=== PATIENT | female | born 1965 | race Caucasian/White ===

== ENCOUNTER 2019-10-10 11:45 | Outpatient (CLI) | payer SELFPAY ==
--- NOTE | 2019-10-10 11:56 | XR_ITS ---
WS: [id number] FOOT LEFT TECHNIQUE: 3 views of the left foot CLINICAL INFORMATION: LEFT FOOT PAIN COMPARISON: None. FINDINGS: Osteopenia. No acute fractures. Mild degenerative arthritis. Prominent Achilles and plantar calcaneal spurring. Mild diffuse soft tissue edema. XR/XR foot LT min 3V* [id number] IMPRESSION: 1. Osteopenia. 2. Diffuse soft tissue edema. No acute fractures. 3. Mild degenerative arthritis. 4. Prominent plantar and Achilles calcaneal spurring.
== END 2019-10-10 11:46 | disposition home or self-care (01) ==
LOC: RADWPI 11:51
PROVIDERS: PCP Nurse Practitioner Family; Visit Provider Nurse Practitioner Family
DX: M85.872 Other specified disorders of bone density and structure, left ankle and foot (principal); R60.9 Edema, unspecified; M19.072 Primary osteoarthritis, left ankle and foot; M77.32 Calcaneal spur, left foot
CPT/HCPCS: 73630

== ENCOUNTER 2019-11-14 18:39 | Emergency (ER) | payer SELFPAY ==
[2019-11-14 19:06] VITALS: BP 228/125; PULSE 80; RESP 18; TEMP 36.9; O2SAT 97; BMI 43.8
--- NOTE | 2019-11-14 19:10 | XRR_ITS ---
PROCEDURE INFORMATION: Exam: XR Chest, 1 View Exam date and time: 11/14/2019 7:23 PM Age: 54 years old Clinical indication: Other: High BP; Additional info: Cp TECHNIQUE: Imaging protocol: XR of the chest Views: 1 view. COMPARISON: No relevant prior studies available. FINDINGS: Lungs: Unremarkable. No consolidation. Pleural space: Unremarkable. No pleural effusion. No pneumothorax. Heart/Mediastinum: Hiatal hernia. Bones/joints: Unremarkable. XR/XR chest 1V portable [id number] IMPRESSION: Nonacute.
--- NOTE | 2019-11-14 19:11 | ECG_ITS ---
Measurements Intervals [place] Rate: 76 P: 20 CO: 146 QRS: 3 QRSD: 78 T: 9 QT: 362 QTc: 407 SINUS RHYTHM MODERATE VOLTAGE CRITERIA FOR LVH, CONSIDER NORMAL VARIANT [MEETS CRITERIA IN ON ONE OF: R(aVL), S(V1), R(V5), R(V5/V6)+S(V1)] No previous ECG available for comparison Electronically Signed On 11-15-2019 8:03:31 CDT by Merrill Contreras [email or web address]
--- NOTE | 2019-11-14 19:15 | ED_ITS ---
Entered by Marla Ramirez, acting as scribe for Sofy Zhang HPI - General Adult General: Chief complaint: General Medical Stated complaint: high bp Time Seen by Provider: 11/14/19 19:10 Source: patient Mode of arrival: ambulatory Limitations: no limitations History of Present Illness: HPI narrative: 54 yo f came to the er pov for hypertension. Onset was today. Pt states that she has had issues with her bp for a few years and stopped taking her medication. She called [facility] to see if that could put her back on the medication and they told pt that her bp was stroke level and to come here. PTs bp at home was 193/103. Pt is denying chest pain, headache and shortness of breath at this time. Pt has been on antibiotics for a URI. complaint: HTN Onset (ago): day(s) (today) Severity: moderate Pain Consistency: intermittent Relieving factors: none Exacerbating factors: none Associated symptoms: Reports no associated symptoms; Deny chest pain, dyspnea, headache(s), nausea or rash Treatments prior to arrival: none Review of Systems General: Reports: other (negative unless marked) Const: Denies: fever Eyes: Denies: change in vision ENMT: Denies: throat pain Card: Denies: chest pain Resp: Denies: shortness of breath or productive cough GI: Denies: abdominal pain or nausea : Denies: flank pain Musc: Denies: neck pain or back pain Skin/Breast: Denies: rash Neuro: Denies: headache Psych: Denies: anxiety Endo: Denies: excessive urination or excessive thirst [place]ako/Lymph: Denies: easy bruising PFS ED PFSH: Social History Smoking and tobacco status: former smoker Physical Exam Const: COMMON NORMALS: no apparent distress, oriented x3, no limitations, healthy appearing and well nourished EXAM LIMITATIONS: no altered mental status GENERAL APPEARANCE: cooperative, well kempt and well developed ORIENTATION/CONSCIOUSNESS: Yes awake HENMT: COMMON NORMALS: normocephalic, head/scalp atraumatic, hearing grossly normal bilaterally, external ears normal, EAC's normal, external nose normal and moist oral mucous membranes HEAD & SCALP: normal to inspection, normocephalic and atraumatic FACE & SINUS: normal facial exam and face symmetric NOSE: external nose normal and nares normal EXTERNAL EAR: Yes external ears normal EXTERNAL AUDITORY CANAL: EAC's normal MOUTH: oral and palatal mucosa normal and tongue normal Eye: COMMON NORMALS: PERRL, EOMs intact bilaterally, conjunctivae normal and no scleral icterus GENERAL EYE: normal appearance of both eyes and normal light reflex CONJUNCTIVA: Yes conjunctivae normal SCLERA: sclerae normal CORNEA: Yes corneas normal PUPIL: Yes PERRL DIRECT OPHTHALMOSCOPY: Yes normal light reflex Neck/C-Spine: COMMON NORMALS: full ROM, no lymphadenopathy, supple, no meningeal signs and no JVD GENERAL: Yes normal visual inspection and Yes trachea midline CERVICAL SPINE: Yes cervical ROM normal Chest: COMMONS NORMALS: inspection of chest normal and palpation of chest normal Resp: COMMON NORMALS: normal respiratory effort, no retractions, no use of accessory muscles and clear to auscultation bilaterally EFFORT & INSPECTION: Yes able to speak in complete sentences AUSCULTATION: clear to auscultation bilaterally Cardio: COMMON NORMALS: no JVD, regular rate, regular rhythm, S1 normal heart sound, S2 normal heart sound, no gallops, no clicks, no murmurs and no rub JUGULAR VENOUS DISTENTION: no JVD RATE: regular rate RHYTHM: regular rhythm HEART SOUNDS: S1 normal and S2 normal GI: COMMON NORMALS: soft to palpation, non-tender, no hepatosplenomegaly and no masses INSPECTION: Yes normal to inspection PALPATION: Yes soft and Yes no hepatosplenomegaly : COMMON NORMALS: Yes no CVA tenderness BLADDER/KIDNEY EXAM: Yes no CVA tenderness Back/Pelvis: COMMON NORMALS: no CVA tenderness, thoracic and lumbar spine normal to inspection, no thoracic nor lumbar tenderness and thoraco-lumbar ROM normal Extremity: COMMON NORMALS: normal to inspection, full ROM, normal capillary refill, no joint enlargement, no clubbing, cyanosis or edema and no calf tenderness Neuro: COMMON NORMALS: oriented x3, CN's II-XII intact bilaterally, moves all extremities, no focal motor deficits and no sensory deficits noted MENINGEAL SIGNS: Yes no meningeal signs Psych: COMMON NORMALS: mental status grossly normal, thought process normal, cooperative, affect normal, speech normal and activity/motor behavior normal APPEARANCE: Yes well kempt SPEECH: Yes normal speech THOUGHT PROCESS: normal thought process Skin: COMMON NORMALS: no rashes or lesions noted, skin turgor normal, no jaundice, no petechiae and no mottling GENERAL SKIN EXAM: no rashes or lesions noted and turgor normal Course Vital Signs: Vital signs: Vital Signs Temperature 98.4 F 11/14/19 19:06 Pulse Rate 80 11/14/19 19:06 Respiratory Rate 18 11/14/19 19:06 Blood Pressure 228/125 11/14/19 19:06 Pulse Oximetry 97 11/14/19 19:06 MDM - General Adult MDM Narrative: Medical decision making narrative: The case was reviewed in full with Dr. Sandoval, on-call for Mr. Kim. She agrees to have the patient start Norvasc 5 mg daily. The patient is asymptomatic and simply has uncontrolled hypertension. They will try to fit the patient in next week if possible. At this time though the patient is ready for discharge. Lab Data: Attestation: I reviewed the patient's lab results. Labs: Lab Results 11/14/19 11/14/19 11/14/19 Range/Units 19:23 19:23 19:23 WBC 8.6 (4.0-10.0) 10^3/ uL RBC 5.13 (4.1-5.3) 10^6/u L Hgb 12.0 (11.5-15.3) g/dL Hct 41.0 (37.0-47.0) % MCV 79.9 L (81-99) fL MCH 23.4 L (28.0-34.0) pg MCHC 29.3 L (30.0-36.0) g/dL RDW 17.1 H (12.1-15.1) % Plt Count 391 (130-400) 10^3/c mm MPV 11.9 H (7.4-10.4) fL Neut % (Auto) 60.6 % Lymph % (Auto) 31.9 % [place] % (Auto) 5.1 % Eos % (Auto) 1.4 % Baso % (Auto) 0.5 % Neut # (Auto) 5.2 (1.8-7.7) 10^3/u L Lymph # (Auto) 2.7 (0.8-4.8) 10^3/u L [place] # (Auto) 0.4 (0.2-0.9) 10^3/u L Eos # (Auto) 0.1 (0.0-0.8) 10^3/u L Baso # (Auto) 0.0 (0.0-0.1) 10^3/u L Nucleated RBC % (a uto) 0 % Nucleated RBCs # 0.0 /100WBC Sodium 138 (136-145) mmol/L Potassium 4.2 (3.5-5.1) mmol/L Chloride 101 (98-107) mmol/L Carbon Dioxide 20 L (22-29) mmol/L Anion Gap 21.2 H (5-19) BUN 8 (6-20) mg/dL Creatinine 1.1 H (0.5-0.9) mg/dL GFR Calculation 52.2 L (90-130) mL/min Glucose 113 (65-115) mg/dL Calculated Osmolal ity 283 L (285-295) mOsm/k g Calcium 8.5 (8.5-10.5) mg/dL Magnesium 2.1 (1.7-2.3) mg/dL Total Bilirubin 0.2 (0.15-1.2) mg/dL AST 20 (0-32) U/L ALT 23 (0-33) U/L Alkaline Phosphata se 109 H (35-105) IU/L Troponin T Baselin e 6 (0-10) ng/mL Total Protein 7.3 (6.6-8.7) g/dL Albumin 4.3 (3.5-5.2) g/dL Globulin 3.0 (1.3-4.6) g/dL Urine Color (Yellow) Urine Appearance (CLEAR) Urine pH (5-7) Ur Specific Gravit y (1.005-1.030) Urine Protein (Negative) Urine Glucose (UA) (Normal) Urine Ketones (Negative) Urine Blood (Negative) Urine Nitrate (Negative) Urine Bilirubin (NEGATIVE) Urine Urobilinogen (Negative) mg/dL Ur Leukocyte Radha ase (Negative) Urine RBC (0-2) /hpf Urine WBC (0-5) /hpf Ur Squamous Epith Cells (0-5) Urine Bacteria (NONE) Urine Opiates Scre en (Negative) ng/mL Ur Barbiturates Sc reen (Negative) ng/mL Ur Phencyclidine S crn (Negative) ng/mL Ur Amphetamines Sc reen (Negative) ng/mL U Benzodiazepines Scrn (Negative) ng/mL Urine Cocaine Scre en (Negative) ng/mL U Marijuana (THC) Screen (Negative) ng/mL 11/14/19 11/14/19 Range/Units 19:40 19:40 WBC (4.0-10.0) 10^3/ uL RBC (4.1-5.3) 10^6/u L Hgb (11.5-15.3) g/dL Hct (37.0-47.0) % MCV (81-99) fL MCH (28.0-34.0) pg MCHC (30.0-36.0) g/dL RDW (12.1-15.1) % Plt Count (130-400) 10^3/c mm MPV (7.4-10.4) fL Neut % (Auto) % Lymph % (Auto) % [place] % (Auto) % Eos % (Auto) % Baso % (Auto) % Neut # (Auto) (1.8-7.7) 10^3/u L Lymph # (Auto) (0.8-4.8) 10^3/u L [place] # (Auto) (0.2-0.9) 10^3/u L Eos # (Auto) (0.0-0.8) 10^3/u L Baso # (Auto) (0.0-0.1) 10^3/u L Nucleated RBC % (a uto) % Nucleated RBCs # /100WBC Sodium (136-145) mmol/L Potassium (3.5-5.1) mmol/L Chloride (98-107) mmol/L Carbon Dioxide (22-29) mmol/L Anion Gap (5-19) BUN (6-20) mg/dL Creatinine (0.5-0.9) mg/dL GFR Calculation (90-130) mL/min Glucose (65-115) mg/dL Calculated Osmolal ity (285-295) mOsm/k g Calcium (8.5-10.5) mg/dL Magnesium (1.7-2.3) mg/dL Total Bilirubin (0.15-1.2) mg/dL AST (0-32) U/L ALT (0-33) U/L Alkaline Phosphata se (35-105) IU/L Troponin T Baselin e (0-10) ng/mL Total Protein (6.6-8.7) g/dL Albumin (3.5-5.2) g/dL Globulin (1.3-4.6) g/dL Urine Color Yellow (Yellow) Urine Appearance Cloudy (CLEAR) Urine pH 6.5 (5-7) Ur Specific Gravit y 1.010 (1.005-1.030) Urine Protein Neg (Negative) Urine Glucose (UA) Norm (Normal) Urine Ketones Negative (Negative) Urine Blood Neg (Negative) Urine Nitrate Negative (Negative) Urine Bilirubin Neg (NEGATIVE) Urine Urobilinogen 1 H (Negative) mg/dL Ur Leukocyte Radha ase Negative (Negative) Urine RBC None (0-2) /hpf Urine WBC 0-4 H (0-5) /hpf Ur Squamous Epith Cells 15-25 H (0-5) Urine Bacteria 1+ H (NONE) Urine Opiates Scre en Negative (Negative) ng/mL Ur Barbiturates Sc reen Negative (Negative) ng/mL Ur Phencyclidine S crn Negative (Negative) ng/mL Ur Amphetamines Sc reen Negative (Negative) ng/mL U Benzodiazepines Scrn Negative (Negative) ng/mL Urine Cocaine Scre en Negative (Negative) ng/mL U Marijuana (THC) Screen Negative (Negative) ng/mL EKG Data^: EKG 1: Attestation: I personally reviewed and interpreted this EKG as follows: EKG interpretation date: 11/14/19 EKG interpretation time: 19:26 Interpretation: Normal sinus rhythm at 76 beats a minute, LVH, normal intervals, no blocks. No acute ST-T wave changes. Computer generated interpretation: Chest X-Ray 11/14/19 19:10 IMPRESSION: Nonacute. Discharge Plan Discharge Patient Disposition: Home, Self-Care Clinical Impression: Hypertension Qualifiers: Hypertension type: essential hypertension Qualified Code(s): I10 - Essential (primary) hypertension Condition: Stable Prescriptions: New Norvasc 5 mg tablet 5 mg PO DAILY Qty: 30 RF: 0 No Action Dexilant 30 mg Capsule,Biphase Delayed Releas 60 mg PO DAILY PRN (Reason: unknown) RF: 0 azithromycin 250 mg tablet See Rx Instructions .ROUTE .COMPLEX RF: 0 Discharge Orders: Discharge Order (Routine); Ordered 11/14/19 Ordered By: Sofy Zhang Referrals: Matthew Kim NP [Primary Care Provider] - 1-3 days [facility], [Family Provider] - Discharge Diet: Advance as tolerated Discharge Activity: Increase activity as tolerated Patient Instructions: Hypertension (ED) Activity Restrictions/Additional Instructions: Please return to the ER immediately for any of the signs or symptoms listed on your discharge instruction sheets, worsening/changing of your symptoms, you are not getting better as quickly as expected, or for ANY other cause or concerns. Coding Level of Care Code ED Energy Sales Consultant for Chg Fwd Exam Comprehensive The documentation recorded by the James montoya Stephanie Lyn, accurately reflects the service I personally performed and the decisions made by me, Sofy Zhang Nov 14, 2019 18:39
[2019-11-14] MEDS: labetalol 5 mg/mL SDV 20mL 10 MG IVP (19:37)
[2019-11-14 19:46] LABS: Basophils % 0.5 %; Eosinophils # 0.1 10^3/uL (0.0-0.8); Eosinophils % 1.4 %; Lymphocytes # 2.7 10^3/uL (0.8-4.8); Lymphocytes % 31.9 %; Mean Corpuscular HGB Conc 29.3 g/dL (30.0-36.0); Mean Corpuscular Hemoglobin 23.4 pg (28.0-34.0); Mean Corpuscular Volume 79.9 fL (81-99); Mean Platelet Volume 11.9 fL (7.4-10.4); Monocytes # 0.4 10^3/uL (0.2-0.9); Monocytes % 5.1 %; Neutrophils # 5.2 10^3/uL (1.8-7.7); Neutrophils % 60.6 %; Nucleated Red Blood Cells % 0 %; Platelet Count 391 10^3/cmm (130-400); Red Blood Count 5.13 10^6/uL (4.1-5.3); Red Cell Distribution Width 17.1 % (12.1-15.1); White Blood Count 8.6 10^3/uL (4.0-10.0)
[2019-11-14 19:55] LABS: Add Urine Microscopic? YES; Bilirubin Urine Neg (NEGATIVE); Blood Urine Neg (Negative); Glucose Urine UA Norm (Normal); Ketones Urine Negative (Negative); Leukocyte Esterase Urine Negative (Negative); Nitrate Urine Negative (Negative); Protein Urine Neg (Negative); Urine Appearance Cloudy (CLEAR); Urine Color Yellow (Yellow); Urobilinogen Urine 1 mg/dL (Negative); pH Urine 6.5 (5-7)
[2019-11-14 19:56] LABS: Alanine Aminotransferase 23 U/L (0-33); Albumin Level 4.3 g/dL (3.5-5.2); Alkaline Phosphatase 109 IU/L (35-105); Anion Gap 21.2 (5-19); Aspartate Amino Transferase 20 U/L (0-32); Blood Urea Nitrogen 8 mg/dL (6-20); Calcium 8.5 mg/dL (8.5-10.5); Carbon Dioxide 20 mmol/L (22-29); Chloride 101 mmol/L (98-107); Glomerular Filtration Rate 52.2 mL/min (90-130); Glucose 113 mg/dL (65-115); Magnesium 2.1 mg/dL (1.7-2.3); Osmolality Calculated 283 mOsm/kg (285-295); Potassium 4.2 mmol/L (3.5-5.1); Sodium 138 mmol/L (136-145); Total Bilirubin 0.2 mg/dL (0.15-1.2); Total Protein 7.3 g/dL (6.6-8.7)
[2019-11-14 19:58] LABS: Troponin(5th) Baseline 6 ng/mL (0-10)
[2019-11-14 20:00] LABS: Bacteria Urine 1+; Squamous Epithelial Cell Urine 15-25 (0-5); WBC Urine 0-4 /hpf (0-5)
[2019-11-14 20:02] LABS: Amphetamines Screen Urine Negative (Negative); Barbiturates Screen Urine Negative (Negative); Benzodiazepines Screen Urine Negative (Negative); Cocaine Screen Urine Negative (Negative); Opiate Screen Urine Negative (Negative); PCP Screen Urine Negative (Negative); THC Screen Urine Negative (Negative)
--- NOTE | 2019-11-14 21:11 | ECG_ITS ---
Measurements Intervals [place] Rate: 76 P: 20 [place]: 146 QRS: 3 QRSD: 78 T: 9 QT: 362 QTc: 407 SINUS RHYTHM MODERATE VOLTAGE CRITERIA FOR LVH, CONSIDER NORMAL VARIANT [MEETS CRITERIA IN ON ONE OF: R(aVL), S(V1), R(V5), R(V5/V6)+S(V1)] No previous ECG available for comparison Electronically Signed On 11-15-2019 8:10:44 CDT by Merrill Contreras [email or web address]
[2019-11-14] MEDS: amlodipine 5 mg Tablet PO (21:30)
[2019-11-14 21:35] VITALS: BP 160/99; RESP 16
== END 2019-11-14 21:36 | disposition home or self-care (01) ==
PROVIDERS: Emergency Provider Emergency Medicine; PCP Nurse Practitioner Family
DX: I10 Essential (primary) hypertension (principal); Z87.891 Personal history of nicotine dependence
CPT/HCPCS: 12345; 36415; 71045; 80053; 80306; 81001; 83735; 84484; 85025; 93005; 93010; 96374; 99283; 99284; A9270; J3490

== ENCOUNTER 2020-11-24 07:44 | Outpatient (CLI) | payer BC, SELFPAY ==
--- NOTE | 2020-11-24 07:50 | MM_ITS ---
WS: [id number] BILATERAL DIGITAL SCREENING MAMMOGRAPHY WITH CAD CLINICAL INFORMATION: SCREENING HISTORY: Screening mammogram. No current complaints. COMPARISON: None. TECHNIQUE: Bilateral CC and MLO views. FINDINGS: Scattered fibroglandular densities bilaterally. No suspicious focal mass, asymmetry, calcifications, or architectural distortion. No evidence of malignancy. Punctate and lucent centered calcifications. MM/[id number] IMPRESSION: BI-RADS: 2-Benign FOLLOW UP: 1 Year Follow-up Recommend return to annual screening mammography.
== END 2020-11-24 07:45 | disposition home or self-care (01) ==
LOC: RADSHAW 07:47
PROVIDERS: PCP Registered Nurse; Visit Provider Registered Nurse
DX: Z12.31 Encounter for screening mammogram for malignant neoplasm of breast (principal)
CPT/HCPCS: 77067

== ENCOUNTER 2020-12-17 21:08 | Observation (INO) | payer BC, SELFPAY ==
[2020-12-17 21:16] VITALS: BP 158/92; PULSE 109; RESP 18; TEMP 36.9; O2SAT 98; BMI 49.6
[2020-12-17 21:34] LABS: Basophils % 0.4 %; Eosinophils % 0.1 %; Hematocrit 22.5 % (37.0-47.0); Lymphocytes # 1.1 10^3/uL (0.8-4.8); Lymphocytes % 15.6 %; Mean Corpuscular HGB Conc 25.8 g/dL (30.0-36.0); Mean Corpuscular Hemoglobin 18.8 pg (28.0-34.0); Mean Corpuscular Volume 72.8 fL (81-99); Mean Platelet Volume 11.3 fL (7.4-10.4); Monocytes # 0.2 10^3/uL (0.2-0.9); Monocytes % 2.7 %; Neutrophils # 5.43 10^3/uL (1.8-7.7); Nucleated Red Blood Cells % 0.6 %; Platelet Count 479 10^3/cmm (130-400); Red Blood Count 3.09 10^6/uL (4.1-5.3); Red Cell Distribution Width 20.1 % (12.1-15.1); White Blood Count 6.8 10^3/uL (4.0-10.0)
[2020-12-17 21:39] LABS: Hemoglobin 5.8 g/dL (11.5-15.3)
[2020-12-17 21:48] LABS: INR 1.09 (0.8-1.2)
[2020-12-17 21:50] VITALS: BP 197/105; PULSE 111; RESP 16; TEMP 37.1; O2SAT 99
[2020-12-17 21:58] LABS: Alanine Aminotransferase 18 U/L (0-33); Albumin Level 4.3 g/dL (3.5-5.2); Alkaline Phosphatase 94 IU/L (35-105); Anion Gap 17.5 (5-19); Aspartate Amino Transferase 23 U/L (0-32); Blood Urea Nitrogen 12 mg/dL (6-20); Calcium 8.6 mg/dL (8.5-10.5); Carbon Dioxide 22 mmol/L (22-29); Chloride 98 mmol/L (98-107); Globulin 2.6 g/dL (1.3-4.6); Glucose 258 mg/dL (65-115); Osmolality Calculated 285 mOsm/kg (285-295); Potassium 4.5 mmol/L (3.5-5.1); Sodium 133 mmol/L (136-145); Total Bilirubin 0.5 mg/dL (0.15-1.2); Total Protein 6.9 g/dL (6.6-8.7)
[2020-12-17] MEDS: acetaminophen 500 mg Tablet 1000 MG PO (23:41)
[2020-12-17] MEDS: diphenhydrAMINE 50 mg/mL SDV 1mL 25 MG IVP (23:42)
[2020-12-17 23:46] VITALS: BP 200/85; PULSE 96; RESP 15; TEMP 36.8; O2SAT 98
[2020-12-17] MEDS: sodium chloride 0.9% 500 ML 50 ML IV (23:53)
--- NOTE | 2020-12-17 23:54 | P.HP_ITS ---
Providers/Chief Complaint Primary Care Provider: PANCHO Nunez Chief Complaint: SENT BY PCP/CHRIS:HEMAGLOBIN 5.9 History of Present Illness Suzie Gomez is a 55 year old female with past medical history of hypertension who presents with complaints of new onset shortness of breath which started several weeks ago. She was seen by her primary care physician for this and was later told to come to emergency room because her PCP found that she was anemic. Here her hemoglobin is 5.8. The patient denies associated chest pain, diaphoresis, dizziness or lightheadedness. She reports tiredness. She has history of hysterectomy and denies menses. Denies vaginal bleeding. Reports constipation and intermittently black stools for last several weeks. She had a colonoscopy several years ago which was unremarkable. Denies any significant abdominal pain. No nausea or vomiting. No weight loss. Denies anemia in the past. Review of Systems General: Reports: 10 or more systems reviewed and unremarkable except in HPI and below Medications/Allergies Home Medications Medication Instructions Recorded Confirmed Last Taken Type amlodipine [Norvasc] 5 mg PO DAILY #30 tab 11/14/19 Unknown Rx azithromycin See Rx Instructions .ROUTE .COMPLEX 11/14/19 11/14/19 11/14/19 08:30 History 1 tab dexlansoprazole [Dexilant] 60 mg PO DAILY PRN 11/14/19 11/14/19 Unknown History Allergies Allergy/AdvReac Type Severity Reaction Status Date / Time No Known Allergies Allergy Verified 11/14/19 19:05 PFSH Acute PFSH: Social History Smoking and tobacco status: former smoker Vitals/I&O/Wt Last Vital Signs Temp 98.3 F 12/17/20 23:46 Pulse 96 12/17/20 23:46 Resp 15 12/17/20 23:46 BP 200/85 12/17/20 23:46 Pulse Ox 98 12/17/20 23:46 12/17/20 12/17/20 12/18/20 14:59 22:59 06:59 Intake Total 0 / 0 Balance 0 / 0 Weight last 48 hrs Weight 143.789 kg Physical Exam Narrative: EXAM NARRATIVE: The patient is awake alert and oriented. No acute distress. Mood and affect are appropriate. Responses are adequate. Skin is warm and dry. Moist mucous membranes Normal speech. Eyes PERRL, extraocular muscles are intact Neck supple. No JVD Lungs clear to auscultation bilaterally. No wheezes or crackles Heart S1, S2, regular Abdomen is soft, nontender, bowel sounds are present Extremities no edema cyanosis or calf tenderness bilaterally Neuro exam is nonfocal. Data : 12/17/20 21:30 12/17/20 21: Other Labs: Laboratory Results WBC 6.8 10^3/uL (4.0-10.0) 12/17/20 21: RBC 3.09 10^6/uL (4.1-5.3) L 12/17/20 21: Hgb 5.8 g/dL (11.5-15.3) L* 12/17/20: Hct 22.5 % (37.0-47.0) L 12/17/20: MCV 72.8 fL (81-99) L 12/17/20: MCH 18.8 pg (28.0-34.0) L 12/17/20: MCHC 25.8 g/dL (30.0-36.0) L 12/17/20 21: RDW 20.1 % (12.1-15.1) H 12/17/20 21: Plt Count 479 10^3/cmm (130-400) H 12/17/20: MPV 11.3 fL (7.4-10.4) H 12/17/20 21: Neut % (Auto) 80.0 % 12/17/20: Lymph % (Auto) 15.6 % 12/17/20: [place] % (Auto) 2.7 % 12/17/20 21: Eos % (Auto) 0.1 % 12/17/20: Baso % (Auto) 0.4 % 12/17/20:30 Neut # (Auto) 5.43 10^3/uL (1.8-7.7) 12/17/20: Lymph # (Auto) 1.1 10^3/uL (0.8-4.8) 12/17/20 21:30 [place] # (Auto) 0.2 10^3/uL (0.2-0.9) 12/17/20 21: Eos # (Auto) 0.0 10^3/uL (0.0-0.8) 12/17/20 21:30 Baso # (Auto) 0.0 10^3/uL (0.0-0.1) 12/17/20 21:30 Nucleated RBC % (auto) 0.6 % 12/17/20 21:30 Nucleated RBCs # 0.0 /100WBC 12/17/20 21:30 PT 14.40 SECONDS (12.1-14.9) 12/17/20 21:30 INR 1.09 (0.8-1.2) 12/17/20 21:30 Sodium 133 mmol/L (136-145) L 12/17/20 21:30 Potassium 4.5 mmol/L (3.5-5.1) 12/17/20 21:30 Chloride 98 mmol/L (98-107) 12/17/20 21: Carbon Dioxide 22 mmol/L (22-29) 12/17/20 21:30 Anion Gap 17.5 (5-19) 12/17/20 21:30 BUN 12 mg/dL (6-20) 12/17/20 21:30 Creatinine 1.1 mg/dL (0.5-0.9) H 12/17/20 21:30 GFR Calculation 52.0 mL/min (90-130) L 12/17/20: Glucose 258 mg/dL (65-115) H 12/17/20 21:30 Calculated Osmolality 285 mOsm/kg (285-295) 12/17/20: Calcium 8.6 mg/dL (8.5-10.5) 12/17/20 21:30 Total Bilirubin 0.5 mg/dL (0.15-1.2) 12/17/20 21:30 AST 23 U/L (0-32) 12/17/20 21:30 ALT 18 U/L (0-33) 12/17/20 21:30 Alkaline Phosphatase 94 IU/L (35-105) 12/17/20 21:30 Total Protein 6.9 g/dL (6.6-8.7) 12/17/20 21:30 Albumin 4.3 g/dL (3.5-5.2) 12/17/20: Globulin 2.6 g/dL (1.3-4.6) 12/17/20 21:30 Blood Type A Positive 12/17/20 21:52 Rho(D) Type Positive / 4+ 12/17/20 21:52 Antibody Screen Negative 12/17/20 21:52 Crossmatch See Detail 12/17/20 21:52 A&P Additional A&P Information 55-year-old female with past medical history of hypertension presents with shortness of breath. Shortness of breath. Most likely due to anemia. Severe symptomatic anemia. GI bleeding is suspected. Probably upper GI. 2 units of PRBCs are ordered in the emergency room. We will admit the patient for observation. Will start Protonix twice daily IV. Will order anemia work-up. If GI bleeding is confirmed we will ask for surgical evaluation. Hypertension. Will resume home medication and cover with as needed hydralazine. Possible chronic kidney disease. Will monitor renal function and avoid nephrotoxic medications. Hyperglycemia. No history of diabetes. We will check her A1c. Will cover with insulin sliding scale. DVT prophylaxis. Teds and SCDs. No anticoagulation due to suspected bleeding and severe anemia. CODE STATUS. The patient wants to be limited code. Does not want to be intubated or connected to respirator. Cardiac resuscitation is okay. The plan of care was discussed with the patient. She verbalized understanding and agreement. Attestations Medical Necessity Statement*: Observation Coding Level of Care Code Acute M1 Armor Crewman for Josh Florez
[2020-12-18] VITALS (20 sets, daily range): BP systolic 154–184; BP diastolic 71–95; PULSE 60–93; RESP 15–18; TEMP 36.7–37.3; O2SAT 96–100
[2020-12-18 03:00] LABS: Ferritin 8 ng/mL (15-150); Iron 11 ug/dL (37-145); Total Iron Binding Capacity 218 mcg/dl; Unsaturated Iron Binding 207 ug/dL (112-347)
[2020-12-18] MEDS: sodium chloride 0.9% 500 ML 50 ML IV (03:03)
[2020-12-18 03:14] LABS: Folate Level 8.6 ng/mL (4.8-37.3)
[2020-12-18 03:15] LABS: Vitamin B12 277 pg/mL (232-1245)
[2020-12-18 03:22] LABS: Estmated Average Glucose 128; Hemoglobin A1C 6.1 % (4.0-6.0)
--- NOTE | 2020-12-18 05:16 | W.ED.RECABL ---
HPI - Recheck/Abnormal Lab/Rx General: Chief Complaint: Recheck/Abnormal Lab/Rx Stated Complaint: SENT BY PCP/CHRIS:KACEYOBILorraine 5.9 Time Seen by Provider: 12/17/20 21:55 History of Present Illness: HPI narrative: 55-year-old female who went to her PCP today, complaining of shortness of breath. She cannot walk any distance at all without becoming acutely short of breath. Originally she thought the this was simply due to deconditioning, but she has been in therapy the last couple of weeks without any improvement. She was called by her doctor's office this evening and told that her hemoglobin was quite low when to come to the ER. complaint: abnormal lab Initial visit (ago): hour(s) Initial visit for: other Returns today for: other Context: called for abnormal lab result Associated symptoms: shortness of breath Treatments prior to arrival: other Review of Systems Const: Denies: fever(s) or chills Card: Reports: palpitations; Denies: chest pain Resp: Reports: dyspnea GI: Reports: abdominal pain (Chronic); Denies: nausea, vomiting or diarrhea PFSH ED PFSH: Social History Smoking and tobacco status: former smoker Physical Exam Const: COMMON NORMALS: alert and well nourished GENERAL APPEARANCE: ill appearing ORIENTATION/CONSCIOUSNESS: Yes awake, Yes oriented to person, Yes oriented to place and Yes oriented to time Eye: COMMON NORMALS: Equal, round and reactive pupils present and EOMs intact bilaterally PUPIL: Yes Equal, round and reactive pupils present Resp: COMMON NORMALS: normal respiratory effort, No use of accessory muscles and clear to auscultation bilaterally AUSCULTATION: clear to auscultation bilaterally Cardio: COMMON NORMALS: regular rate and regular rhythm RATE: regular rate RHYTHM: regular rhythm Neuro: SENSORIUM/ORIENTATION: Yes alert, Yes oriented to person, Yes oriented to place and Yes oriented to time Course Vital Signs: Vital signs: Vital Signs Temperature 98.1 F 12/18/20 03:53 Pulse Rate 72 12/18/20 03:53 Respiratory Rate 16 12/18/20 03:53 Blood Pressure 154/71 12/18/20 03:53 Pulse Oximetry 98 12/18/20 03:53 MDM - Recheck/Abnormal Lab/Rx MDM Narrative: Medical decision making narrative: 55-year-old female called by her PCP office with a hemoglobin of 6. It is 5.8 here on confirmation. She is crossmatched for 2 units of PRBCs, and we will transfuse. To do this, she will be placed as an outpatient in a bed in the hospital for transfusion iron studies to follow, as she is microcytic. Lab Data: Labs: Lab Results 12/17/20 12/17/20 12/17/20 Range/Units 21:30 21:30 21:30 WBC 6.8 (4.0-10.0) 10^3/ uL RBC 3.09 L (4.1-5.3) 10^6/u L Hgb 5.8 L* (11.5-15.3) g/dL Hct 22.5 L (37.0-47.0) % MCV 72.8 L (81-99) fL MCH 18.8 L (28.0-34.0) pg MCHC 25.8 L (30.0-36.0) g/dL RDW 20.1 H (12.1-15.1) % Plt Count 479 H (130-400) 10^3/c mm MPV 11.3 H (7.4-10.4) fL Neut % (Auto) 80.0 % Lymph % (Auto) 15.6 % Gilchrist % (Auto) 2.7 % Eos % (Auto) 0.1 % Baso % (Auto) 0.4 % Neut # (Auto) 5.43 (1.8-7.7) 10^3/u L Lymph # (Auto) 1.1 (0.8-4.8) 10^3/u L Gilchrist # (Auto) 0.2 (0.2-0.9) 10^3/u L Eos # (Auto) 0.0 (0.0-0.8) 10^3/u L Baso # (Auto) 0.0 (0.0-0.1) 10^3/u L Nucleated RBC % (a uto) 0.6 % Nucleated RBCs # 0.0 /100WBC PT 14.40 (12.1-14.9) SECO NDS INR 1.09 (0.8-1.2) Sodium 133 L (136-145) mmol/L Potassium 4.5 (3.5-5.1) mmol/L Chloride 98 (98-107) mmol/L Carbon Dioxide 22 (22-29) mmol/L Anion Gap 17.5 (5-19) BUN 12 (6-20) mg/dL Creatinine 1.1 H (0.5-0.9) mg/dL GFR Calculation 52.0 L (90-130) mL/min Glucose 258 H (65-115) mg/dL Calculated Osmolal ity 285 (285-295) mOsm/k g Calcium 8.6 (8.5-10.5) mg/dL Total Bilirubin 0.5 (0.15-1.2) mg/dL AST 23 (0-32) U/L ALT 18 (0-33) U/L Alkaline Phosphata se 94 (35-105) IU/L Total Protein 6.9 (6.6-8.7) g/dL Albumin 4.3 (3.5-5.2) g/dL Globulin 2.6 (1.3-4.6) g/dL Blood Type Rho(D) Type Antibody Screen Crossmatch 12/17/20 Range/Units 21:52 WBC (4.0-10.0) 10^3/ uL RBC (4.1-5.3) 10^6/u L Hgb (11.5-15.3) g/dL Hct (37.0-47.0) % MCV (81-99) fL MCH (28.0-34.0) pg MCHC (30.0-36.0) g/dL RDW (12.1-15.1) % Plt Count (130-400) 10^3/c mm MPV (7.4-10.4) fL Neut % (Auto) % Lymph % (Auto) % Gilchrist % (Auto) % Eos % (Auto) % Baso % (Auto) % Neut # (Auto) (1.8-7.7) 10^3/u L Lymph # (Auto) (0.8-4.8) 10^3/u L Gilchrist # (Auto) (0.2-0.9) 10^3/u L Eos # (Auto) (0.0-0.8) 10^3/u L Baso # (Auto) (0.0-0.1) 10^3/u L Nucleated RBC % (a uto) % Nucleated RBCs # /100WBC PT (12.1-14.9) SECO NDS INR (0.8-1.2) Sodium (136-145) mmol/L Potassium (3.5-5.1) mmol/L Chloride (98-107) mmol/L Carbon Dioxide (22-29) mmol/L Anion Gap (5-19) BUN (6-20) mg/dL Creatinine (0.5-0.9) mg/dL GFR Calculation (90-130) mL/min Glucose (65-115) mg/dL Calculated Osmolal ity (285-295) mOsm/k g Calcium (8.5-10.5) mg/dL Total Bilirubin (0.15-1.2) mg/dL AST (0-32) U/L ALT (0-33) U/L Alkaline Phosphata se (35-105) IU/L Total Protein (6.6-8.7) g/dL Albumin (3.5-5.2) g/dL Globulin (1.3-4.6) g/dL Blood Type A Positive Rho(D) Type Positive / 4+ Antibody Screen Negative Crossmatch See Detail Discharge Plan Discharge Patient Disposition: Placed in Observation Admit Provider: Stephane Brower Clinical Impression: Anemia Qualifiers: Anemia type: iron deficiency Iron deficiency anemia type: unspecified iron deficiency Qualified Code(s): D50.9 - Iron deficiency anemia, unspecified Coding Level of Care Code ED [employer] for Josh Florez
[2020-12-18] MEDS: sodium chloride 0.9% (100 ml) 100 ML 50 ML (05:52)
[2020-12-18] MEDS: pantoprazole 40 mg SDV IVP (05:52)
--- NOTE | 2020-12-18 07:31 | PC.NURSE ---
sick to her stomach
[2020-12-18] MEDS: docusate sodium 100 mg Capsule PO (09:08)
[2020-12-18 11:26] LABS: Glucose Point of Care 108 mg/dL (70-110)
--- NOTE | 2020-12-18 12:14 | PC.CHAP ---
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 [] Patient/Family/Request visit [] Outpatient visit [] Follow-up visit [] Physician referral [] Code/Alert [XX] Routine visit [] Staff referral [] Actively dying [] Patient sleeping [] Family support [] [] Out of room [] Palliative care [] [] Receiving care in room [] Pre-surgical visit [] Trauma [] Long length of stay [] ICU visit [] Other: Relational/Emotional Strength [XX] Patient feels connected with others/family/visitors/staff [XX] Distress [] Loneliness/isolation [] Abandonment Spirituality of Patient [] Person of Carmen [] Attends Pentecostalism of their Carmen [] Believes in Prayer [] Reads Bible or Mandaeism materials [XX] There are Spiritual issues to be addressed Direct Support Professional Interventions [] Prayer [XX] Active listening [XX] Non-anxious presence [] Spiritual/emotional support [] Crisis/trauma care [] Spiritual counseling [] Bereavement support [] Provided bereavement packet [] Provided Bible/devotional materials [] Provided toy/stuffed animal, coloring book to patient or family member [] Provided Communion [] Anointing/[place] [] Salvation [XX] Completed spiritual assessment [] Other: Impact on Illness or Injury [] Angry [] Fearful [] Anxious [] Often cries [] Exhaustion [] Unable to work [] Unable to attend cheondoism [] Unable to walk/stand [] Unable to read [] Unable to drive [] Unable to eat/drink [] Unable to sleep [] Unable to be with family [] Patient intubated [] Other: Summary: Pt reports that due to a low hemoglobin (Hgb), her doctor called her last evening and told her to report to the ED. Pt is frustrated because she feels normal, which includes the chronic abdominal pain. Pt does not yet know what procedures may be done to assess the cause for the low Hgb. Her was present at bedside. Pt declined prayer. Time spent with patient: 10 mins
[2020-12-18 12:48] LABS: Alanine Aminotransferase 10 U/L (0-33); Albumin Level 4.1 g/dL (3.5-5.2); Alkaline Phosphatase 81 IU/L (35-105); Anion Gap 15.9 (5-19); Aspartate Amino Transferase 18 U/L (0-32); Blood Urea Nitrogen 12 mg/dL (6-20); Calcium 8.2 mg/dL (8.5-10.5); Carbon Dioxide 23 mmol/L (22-29); Chloride 102 mmol/L (98-107); Globulin 2.8 g/dL (1.3-4.6); Glucose 92 mg/dL (65-115); Magnesium 2.4 mg/dL (1.7-2.3); Osmolality Calculated 283 mOsm/kg (285-295); Potassium 3.9 mmol/L (3.5-5.1); Sodium 137 mmol/L (136-145); Thyroid Stimulating Hormone 2.22 uIU/mL (0.27-4.20); Total Bilirubin 1.2 mg/dL (0.15-1.2); Total Protein 6.9 g/dL (6.6-8.7)
[2020-12-18 13:05] LABS: Hematocrit 28.4 % (37.0-47.0)
[2020-12-18 13:08] LABS: Hemoglobin 7.9 g/dL (11.5-15.3)
--- NOTE | 2020-12-18 13:27 | PM.DCS ---
Discharge Providers Date of Admission: 12/18/20 00:03 Date of Discharge: December 18, 2020 Attending Provider at Admission: Stephane Brower Attending Provider at Discharge: Darrin Landeros MD Primary Care Provider: PANCHO Nunez Reason for Visit Reason for Visit: SENT BY PCP/CHRIS:HEMAGLOBIN 5.9 Hospital Course Hospital Course Suzie Gomez is a 55 year old female with past medical history of hypertension who presents with complaints of new onset shortness of breath which started several weeks ago. She was seen by her primary care physician for this and was later told to come to emergency room because her PCP found that she was anemic. Here her hemoglobin is 5.8. The patient denies associated chest pain, diaphoresis, dizziness or lightheadedness. She reports tiredness. She has history of hysterectomy and denies menses. Denies vaginal bleeding. Reports constipation and intermittently black stools for last several weeks. She had a colonoscopy several years ago which was unremarkable. Denies any significant abdominal pain. No nausea or vomiting. No weight loss. Denies anemia in the past other than when she was a child. She is a family history of profound anemia in her grandmother. Patient admitted to hospital and was transfused 2 units of PRBC. Blood work was done for evaluation of severe anemia and was consistent with severe iron deficiency anemia, vitamin B12 and folate levels are within normal limits. Peripheral smear is pending. She states she has not had a bowel movement in over 2 days which is usual for her and last she had diarrhea was around 3 weeks ago which was mostly soft [id number] brown-colored bowel movements. Further blood work showed an A1c of 6.1, normal TSH, normal LFTs. On examination she was found to be in JUSTICE with creatinine of 1.1 which trended down to 0.8. Repeat hemoglobin is 7.9. As patient is not having any active bleeding and is hemodynamically stable the decision was made to discharge patient advised to follow-up with Dr. Hills as an outpatient for possible EGD and colonoscopy and Dr. Iglesias as an outpatient for anemia work-up. Physical Exam Narrative: EXAM NARRATIVE: The patient is awake alert and oriented. No acute distress. Mood and affect are appropriate. Responses are adequate. Skin is warm and dry. Moist mucous membranes Normal speech. Eyes PERRL, extraocular muscles are intact Neck supple. No JVD Lungs clear to auscultation bilaterally. No wheezes or crackles Heart S1, S2, regular Abdomen is soft, nontender, bowel sounds are present Extremities no edema cyanosis or calf tenderness bilaterally Neuro exam is nonfocal. Discharge Data Data Completed and Pending: Pending at discharge Category Date Time Status Hemoglobin and He matocrit Q6H Lab 12/18/20 17:58 Ordered Immunochemical Fe marck OCB Routine Lab 12/18/20 00:00 Uncollected LAB Peripheral Sm ear Stat Lab 12/18/20 02:22 Received Labs from last 24 hours 12/18/20 12/18/20 12/18/20 11:30 11:30 11:19 WBC RBC Hgb 7.9 L D Hct 28.4 L MCV MCH MCHC RDW Plt Count MPV Neut % (Auto) Lymph % (Auto) Candler % (Auto) Eos % (Auto) Baso % (Auto) Neut # (Auto) Lymph # (Auto) Candler # (Auto) Eos # (Auto) Baso # (Auto) Nucleated RBC % (a uto) Nucleated RBCs # PT INR Sodium 137 Potassium 3.9 Chloride 102 Carbon Dioxide 23 Anion Gap 15.9 BUN 12 Creatinine 0.8 GFR Calculation 75.0 L Glucose 92 POC Glucose 108 Estimat Average Gl ucose Hemoglobin A1c Calculated Osmolal ity 283 L Calcium 8.2 L Magnesium 2.4 H Iron TIBC % Saturation Unsat Iron Binding Ferritin Total Bilirubin 1.2 AST 18 ALT 10 Alkaline Phosphata se 81 Total Protein 6.9 Albumin 4.1 Globulin 2.8 Vitamin B12 Folate TSH 2.22 Blood Type Rho(D) Type Antibody Screen Crossmatch 12/18/20 12/18/20 12/18/20 02:29 02:29 02:29 WBC RBC Hgb Hct MCV MCH MCHC RDW Plt Count MPV Neut % (Auto) Lymph % (Auto) Candler % (Auto) Eos % (Auto) Baso % (Auto) Neut # (Auto) Lymph # (Auto) Candler # (Auto) Eos # (Auto) Baso # (Auto) Nucleated RBC % (a uto) Nucleated RBCs # PT INR Sodium Potassium Chloride Carbon Dioxide Anion Gap BUN Creatinine GFR Calculation Glucose POC Glucose Estimat Average Gl ucose 128 Hemoglobin A1c 6.1 H Calculated Osmolal ity Calcium Magnesium Iron 11 L TIBC 218 % Saturation 5.0 L Unsat Iron Binding 207 Ferritin 8 L Total Bilirubin AST ALT Alkaline Phosphata se Total Protein Albumin Globulin Vitamin B12 277 Folate 8.6 TSH Blood Type Rho(D) Type Antibody Screen Crossmatch 12/17/20 12/17/20 12/17/20 21:52 21:30 21:30 WBC RBC Hgb Hct MCV MCH MCHC RDW Plt Count MPV Neut % (Auto) Lymph % (Auto) Candler % (Auto) Eos % (Auto) Baso % (Auto) Neut # (Auto) Lymph # (Auto) Candler # (Auto) Eos # (Auto) Baso # (Auto) Nucleated RBC % (a uto) Nucleated RBCs # PT 14.40 INR 1.09 Sodium 133 L Potassium 4.5 Chloride 98 Carbon Dioxide 22 Anion Gap 17.5 BUN 12 Creatinine 1.1 H GFR Calculation 52.0 L Glucose 258 H POC Glucose Estimat Average Gl ucose Hemoglobin A1c Calculated Osmolal ity 285 Calcium 8.6 Magnesium Iron TIBC % Saturation Unsat Iron Binding Ferritin Total Bilirubin 0.5 AST 23 ALT 18 Alkaline Phosphata se 94 Total Protein 6.9 Albumin 4.3 Globulin 2.6 Vitamin B12 Folate TSH Blood Type A Positive Rho(D) Type Positive / 4+ Antibody Screen Negative Crossmatch See Detail 12/17/20 21:30 WBC 6.8 RBC 3.09 L Hgb 5.8 L* Hct 22.5 L MCV 72.8 L MCH 18.8 L MCHC 25.8 L RDW 20.1 H Plt Count 479 H MPV 11.3 H Neut % (Auto) 80.0 Lymph % (Auto) 15.6 Candler % (Auto) 2.7 Eos % (Auto) 0.1 Baso % (Auto) 0.4 Neut # (Auto) 5.43 Lymph # (Auto) 1.1 Candler # (Auto) 0.2 Eos # (Auto) 0.0 Baso # (Auto) 0.0 Nucleated RBC % (a uto) 0.6 Nucleated RBCs # 0.0 PT INR Sodium Potassium Chloride Carbon Dioxide Anion Gap BUN Creatinine GFR Calculation Glucose POC Glucose Estimat Average Gl ucose Hemoglobin A1c Calculated Osmolal ity Calcium Magnesium Iron TIBC % Saturation Unsat Iron Binding Ferritin Total Bilirubin AST ALT Alkaline Phosphata se Total Protein Albumin Globulin Vitamin B12 Folate TSH Blood Type Rho(D) Type Antibody Screen Crossmatch Addt'l Data from Hospital Stay: Laboratory Results WBC 6.8 10^3/uL (4.0- 10.0) 12/17/20 21:30 RBC 3.09 10^6/uL (4.1 -5.3) L 12/17/20 21:30 Hgb 7.9 g/dL (11.5-15 .3) L D 12/18/20 11:30 Hct 28.4 % (37.0-47.0 ) L 12/18/20 11:30 MCV 72.8 fL (81-99) L 12/17/20 21:30 MCH 18.8 pg (28.0-34. 0) L 12/17/20 21: MCHC 25.8 g/dL (30.0-3 6.0) L 12/17/20 21: RDW 20.1 % (12.1-15.1 ) H 12/17/20 21:30 Plt Count 479 10^3/cmm (130 -400) H 12/17/20 21: MPV 11.3 fL (7.4-10.4 ) H 12/17/20 21:30 Neut % (Auto) 80.0 % 12/17/20 21: Lymph % (Auto) 15.6 % 12/17/20 21: Candler % (Auto) 2.7 % 12/17/20 21:30 Eos % (Auto) 0.1 % 12/17/20 21: Baso % (Auto) 0.4 % 12/17/20 21: Neut # (Auto) 5.43 10^3/uL (1.8 -7.7) 12/17/20 21: Lymph # (Auto) 1.1 10^3/uL (0.8- 4.8) 12/17/20 21:30 Candler # (Auto) 0.2 10^3/uL (0.2- 0.9) 12/17/20 21: Eos # (Auto) 0.0 10^3/uL (0.0- 0.8) 12/17/20 21:30 Baso # (Auto) 0.0 10^3/uL (0.0- 0.1) 12/17/20 21: Nucleated RBC % (a uto) 0.6 % 12/17/20 21:30 Nucleated RBCs # 0.0 /100WBC 12/17/20 21:30 PT 14.40 SECONDS (12 .1-14.9) 12/17/20 21:30 INR 1.09 (0.8-1.2) 12/17/20 21:30 Sodium 137 mmol/L (136-1 45) 12/18/20 11:30 Potassium 3.9 mmol/L (3.5-5 .1) 12/18/20 11:30 Chloride 102 mmol/L (98-10 7) 12/18/20 11:30 Carbon Dioxide 23 mmol/L (22-29) 12/18/20 11:30 Anion Gap 15.9 (5-19) 12/18/20 11:30 BUN 12 mg/dL (6-20) 12/18/20 11:30 Creatinine 0.8 mg/dL (0.5-0. 9) 12/18/20 11:30 GFR Calculation 75.0 mL/min (90-1 30) L 12/18/20 11:30 Glucose 92 mg/dL (65-115) 12/18/20 11:30 POC Glucose 108 mg/dL (70-110 ) 12/18/20 11:19 Estimat Average Gl ucose 128 12/18/20 02:29 Hemoglobin A1c 6.1 % (4.0-6.0) H 12/18/20 02:29 Calculated Osmolal ity 283 mOsm/kg (285- 295) L 12/18/20 11:30 Calcium 8.2 mg/dL (8.5-10 .5) L 12/18/20 11:30 Magnesium 2.4 mg/dL (1.7-2. 3) H 12/18/20 11:30 Iron 11 ug/dL (37-145) L 12/18/20 02:29 TIBC 218 mcg/dl 12/18/20 02:29 % Saturation 5.0 % (20-50) L 12/18/20 02:29 Unsat Iron Binding 207 ug/dL (112-34 7) 12/18/20 02:29 Ferritin 8 ng/mL (15-150) L 12/18/20 02:29 Total Bilirubin 1.2 mg/dL (0.15-1 .2) 12/18/20 11:30 AST 18 U/L (0-32) 12/18/20 11:30 ALT 10 U/L (0-33) 12/18/20 11:30 Alkaline Phosphata se 81 IU/L (35-105) 12/18/20 11:30 Total Protein 6.9 g/dL (6.6-8.7 ) 12/18/20 11:30 Albumin 4.1 g/dL (3.5-5.2 ) 12/18/20 11:30 Globulin 2.8 g/dL (1.3-4.6 ) 12/18/20 11:30 Vitamin B12 277 pg/mL (232-12 45) 12/18/20 02:29 Folate 8.6 ng/mL (4.8-37 .3) 12/18/20 02:29 TSH 2.22 uIU/mL (0.27 -4.20) 12/18/20 11:30 Blood Type A Positive 12/17/20 21:52 Rho(D) Type Positive / 4+ 12/17/20 21:52 Antibody Screen Negative 12/17/20 21:52 Crossmatch See Detail 12/17/20 21:52 Vitals: Last Vital Signs Temp 98.1 F 12/18/20 11:23 Pulse 72 12/18/20 12:25 Resp 18 12/18/20 11:23 BP 164/80 12/18/20 11:23 Pulse Ox 96 12/18/20 12:25 Discharge Plan Discharge Patient Disposition: Home Condition: Stable Prescriptions: New pantoprazole [Protonix] [address] for susp in packet 40 mg PO BID Qty: 30 RF: 0 Continued losartan 100 mg tablet 100 mg PO DAILY RF: 0 metoprolol tartrate 25 mg tablet 12.5 mg PO BID RF: 0 meloxicam 15 mg tablet 15 mg PO DAILY RF: 0 amlodipine [Norvasc] 5 mg tablet 5 mg PO DAILY Qty: 30 RF: 0 Discontinued prednisone 20 mg tablet 20 mg PO DAILY RF: 0 Dexilant 30 mg Capsule,Biphase Delayed Releas 60 mg PO DAILY PRN (Reason: unknown) RF: 0 azithromycin 250 mg tablet See Rx Instructions .ROUTE .COMPLEX RF: 0 Discharge Orders: Discharge Order (Routine); Ordered 12/18/20 Ordered By: Darrin Landeros Referrals: Michael Hills MD [Physician] - 4-7 days Viviane Iglesias MD [Staff Physician] - 4-7 days Adelita James FNP [Primary Care Provider] - 7-10 days Discharge Diet: Regular Discharge Activity: Resume usual activity Patient Instructions: Opioid Safety Activity Restrictions/Additional Instructions: Please follow-up with Dr. Hills for possible endoscopy as an outpatient. Please follow-up with Dr. Iglesias as an outpatient for next 4 to 7 days for further work-up of anemia. Discharge Attestations Time Spent in Discharge Care*: greater than 30 min Specific Discharge Activities: educating patient, educating and/or supporting family/caregiver, discussing with case assistant/social workers/dc planners, documenting/other paperwork and evaluating patient/reviewing data Status at Discharge: Cognitive status at discharge: cognitively intact, Behavioral status at discharge: cooperative, Functional status at discharge: independent ambulation Overall status at discharge: patient is back to baseline Quality Metrics Clinical Quality Measures During this hospital stay, did patient experience: None Coding Level of Care Code Acute [facility] DC note
--- NOTE | 2020-12-18 13:53 | PC.NURSE ---
Discharge instructions discussed with patient as well as needing to call Sunday to make follow up appointments. IV discontinued. Tip of catheter intact. Patient tolerated well. Medications sent to [facility] pharmacy. Patient verbalized understanding.
[2020-12-18 17:04] LABS: LAB Peripheral Smear Sent for Review
== END 2020-12-18 13:54 | disposition home or self-care (01) ==
LOC: ER 23:26 → MEDSURG 12-18 00:03
PROVIDERS: Admitting Provider Internal Medicine; Emergency Provider Emergency Medicine; PCP Registered Nurse; Visit Provider Student in an Organized Health Care Education/Training Program
DX: R06.02 Shortness of breath (principal); I10 Essential (primary) hypertension; D64.9 Anemia, unspecified; R73.9 Hyperglycemia, unspecified; Z87.891 Personal history of nicotine dependence
CPT/HCPCS: 36415; 36416; 36430; 80053; 80500; 82607; 82728; 82746; 82962; 83036; 83540; 83550; 83735; 84443; 85014; 85018; 85025; 85610; 86850; 86900; 86920; 96361; 96374; 96375; 99285; C9113; G0378; J1200; J7040; P9016

== ENCOUNTER 2020-12-28 11:17 | Outpatient (CLI) | payer BC, SELFPAY ==
[2020-12-28 12:10] LABS: Basophils % 0.5 %; Eosinophils # 0.1 10^3/uL (0.0-0.8); Eosinophils % 1.7 %; Hematocrit 29.9 % (37.0-47.0); Hemoglobin 8.2 g/dL (11.5-15.3); Lymphocytes % 30.8 %; Mean Corpuscular HGB Conc 27.4 g/dL (30.0-36.0); Mean Corpuscular Hemoglobin 21.4 pg (28.0-34.0); Mean Corpuscular Volume 77.9 fL (81-99); Mean Platelet Volume 11.3 fL (7.4-10.4); Monocytes # 0.4 10^3/uL (0.2-0.9); Monocytes % 6.9 %; Neutrophils # 3.79 10^3/uL (1.8-7.7); Neutrophils % 59.8 %; Nucleated Red Blood Cells % 0 %; Platelet Count 510 10^3/cmm (130-400); Red Blood Count 3.84 10^6/uL (4.1-5.3); Red Cell Distribution Width 21.3 % (12.1-15.1); White Blood Count 6.3 10^3/uL (4.0-10.0)
--- NOTE | 2020-12-28 16:43 | ONC CON_ITS ---
Dr. Iglesias New Patient Note Patient: Suzie Gomez Unit #: [id number]: [id number] Dicatated By: Viviane Iglesias M.D.Date of Visit: December 28, 2020 Onc MED New Patient/Consult Referring Physician: [facility] History of Present Illness: Ms. Suzie Gomez is a 55-year-old female with a history of progressive dyspnea on exertion, palpitation, generalized weakness and fatigue, lightheadedness or dizziness initially thought it was due to deconditioning, physical therapy did not help her much eventually patient went to see her PMD on December 17, 2020, who ordered CBC and ask her to go to [facility] ER as her CBC showed white blood count 6.8 hemoglobin 5.8 hematocrit 22.5 platelets 479,000 MCV 72.8, patient was admitted to hospital and was given 2 units of packed RBCs with that her overall condition improved, Dr. Hills was consulted and colonoscopy/EGD was planned as outpatient now scheduled for January 20, 2021 Patient denies any history of melena or hematochezia, denies any history of hemoptysis or hematemesis, denies any history of jaundice, denies any history of nosebleed or gum bleed, denies any history of vaginal bleeding as patient has history of hysterectomy. As per patient she had a colonoscopy done on February 03, 2014 and it was unremarkable. Patient has family history of iron deficiency anemia and her younger sister and maternal grandmother, as per her younger sister who is accompanying her her iron deficiency anemia due to heavy menstrual. periods and she is on oral iron supplements. Patient denies any night sweats, denies any weight loss rather gain, denies any recurrent fever, denies any peripheral lymphadenopathy, denies any gum bleed or nosebleed., Denies any chest pain. Past Medical History: Ms. Gomez's medical history consists of hypertension. Past Surgical History: Ms. Gomez's surgical/procedural history consists of covid vaccine #2 in 2020, covid vaccine #1 in 2020, and hysterectomy in 2003. Medications: Losartan Potassium 1 Tablet (of 100 mg) Oral daily, Meloxicam 1 Tablet (of 15 mg) Oral q 48 hours, Metoprolol Succinate ER 1 Tablet (of 25 mg) Tablet SR 24 HR Oral daily, Pantoprazole Sodium 1 Tablet (of 40 mg) Tablet, enteric coated Oral daily Allergies: No Known Allergies. Social History: Ms. Gomez is . Ms. Gomez no longer smokes. She has no history of drinking. Family History: Ms. Gomez's mother at age 67: colon cancer. Ms. Gomez's father at age 69: Cancer. had a blood clot after surgery. Review Of Symptoms: Review of Systems is not available for this patient. Vital Signs: Most recent vitals are not available for this patient. Performance Status: 1 - No physically strenuous activity, but ambulatory and able to carry out light or sedentary work (e.g. office work, light house work). (ECOG) Physical Examination: ENMT - No mouth sores, no thrush, no jaundice, Respiratory - Lungs are clear to auscultation, Cardiovascular - Regular rate and rhythm of heart, Abdomen - Soft, bowel sounds present, Extremities - Trace edema bilaterally. Lab/Imaging: Most recent lab results are not available for this patient. Impression: Iron deficiency anemia status post 2 units of packed RBCs done on December 18, 2020 for hemoglobin 5.8 g, hematocrit 22.5 MCV 72.8 white blood count 6.8 and platelets 479, iron studies done on same day shows iron saturation 5% ferritin 8, iron 11 B12 277, folate 8.6 Status post 2 units of packed RBCs on December 18, 2020 for severe iron deficiency anemia Started on oral iron on December 28, 2020 along with multivitamin Mild thrombocytosis, probably due to severe iron deficiency or chronic GI blood loss Plan: Discussed with patient regarding her labs white blood count 6.3 hemoglobin 8.2 g hematocrit 29.9 platelets 510 MCV 77.9 with normal differential, peripheral blood smear shows severe microcytic hypochromic anemia mild thrombocytosis Clinically, patient doing well with no new signs symptom does not feeling somewhat stronger but still generalized weakness and fatigue but not as bad as it was earlier when she went to [facility] ER, as per patient blood transfusion did help her significantly. At this point we will start her on oral iron 2 pills a day along with vitamin C for better absorption, patient was advised to take on empty stomach and also try [id number] multivitamin as her initial anemia work-up showed B12 level on the low side of normal. Etiology of her iron deficiency anemia could be multifactorial, as mentioned earlier her grandmother had history of iron deficiency and her sister has iron deficiency but sister said her iron deficiency anemia is due to heavy menses. So patient may have iron malabsorption or she may have chronic GI blood loss Due to benign or malignant GI source and she is status post hysterectomy., We will give her a trial of oral iron for 1 month and repeat her CBC and iron studies if it shows hemoglobin continue to improve and iron stores shows improvement then will continue with same we will also follow with her B12 level, if there is no improvement with multivitamin supplement then will consider parenteral B12 Patient was advised in case she has any intolerance to oral iron, she will call us in that case we may consider parenteral iron Patient is already scheduled for EGD and colonoscopy on January 20, 2021, will follow with the reports. Mild thrombocytosis most likely due to severe iron deficiency anemia or chronic GI bleeding, will monitor. Signed By: Viviane Iglesias M.D. <<Signature on File>>
== END 2020-12-28 11:18 | disposition home or self-care (01) ==
LOC: ONCMED 11:19
PROVIDERS: PCP Registered Nurse; Visit Provider Internal Medicine Hematology & Oncology
DX: D50.9 Iron deficiency anemia, unspecified (principal); D47.3 Essential (hemorrhagic) thrombocythemia; Z79.899 Other long term (current) drug therapy
CPT/HCPCS: 36415; 85025; 99204

== ENCOUNTER → 2021-01-14 10:47 | Outpatient (BNVA) | payer BC, SELFPAY | PROVIDERS: PCP Registered Nurse; Visit Provider Surgery | DX: Z01.812 Encounter for preprocedural laboratory examination (principal); Z20.822 Contact with and (suspected) exposure to COVID-19 | CPT/HCPCS: 87635 ==

== ENCOUNTER 2021-01-20 08:19 | Day surgery (SDC) | payer BC, SELFPAY ==
[2021-01-19 13:19] VITALS: BMI 52.4
--- NOTE | 2021-01-20 08:27 | ANES.PREANE2 ---
Pre-Anesthetic Assessment Pre-Anesthetic Assessment: Height/Weight: Height 1.68 m Weight 147.418 kg Preop Diagnosis: anemia Proposed Procedure: Operation Date: 01/20/21 10:00 Proposed Procedures s EGD 64371 D50.9 31822(Not Applicable) - Michael Hills MD p Colonoscopy 50068 d50.9(Not Applicable) - Michael Hills MD Familial anesthetic complications: None Was Beta Madison taken within 24 hours: Yes Was Clonidine taken within 24 hours: N/A Last intake: > 8 hrs Social: Social History: No alcohol and No tobacco Exam: Pre-Anes Outpt Exam: alert, oriented x 3, clear to auscultation bilaterally and regular rate & rhythm Airway: Cervical ROM: WNL MP: 4 Dentition: Full GI: GI: GERD Metabolic: Metabolic: Morbid obesity Musc/skel: Musc/skel: Lower Back Pain Anesthetic Plan: ASA status: 2 Anesthesia: MAC Risk of > 500 ml blood loss (7ml/kg in children): No PFSH Anesthesia PFSH: Medical History GERD (gastroesophageal reflux disease) Surgical History History of colonoscopy History of hysterectomy Family History Denies family history of Anesthesia complication Bleeding disorder Social History Smoking and tobacco status: former smoker Data Anesthesia Cardiac Studies: No Data to Display
--- NOTE | 2021-01-20 08:42 | W.PM.OPSUD ---
Surgery/Procedure H&P Update DATE OF PROCEDURE: January 20, 2021 DATE H&P PERFORMED: 12/27/20 H&P UPDATE INFORMATION: I have reviewed H&P completed within last 30 days, I have examined patient prior to procedure and No changes to prior documentation PREOP DIAGNOSIS: anemia PLANNED PROCEDURE: Operation Date: 01/20/21 10:00 Proposed Procedures s EGD 29560 D50.9 74287(Not Applicable) - Michael Hills MD p Colonoscopy 28369 d50.9(Not Applicable) - Michael Hills MD
[2021-01-20 08:50] VITALS: BP 169/85; PULSE 66; RESP 18; TEMP 37; O2SAT 97
[2021-01-20] MEDS: sodium chloride 0.9% 1,000 ML 30 ML IV (09:10)
[2021-01-20 13:57] VITALS: BP 172/86; PULSE 79; RESP 18; TEMP 36.5; O2SAT 98
--- NOTE | 2021-01-20 14:12 | ANE.PACU2 ---
Inpatient post-anesthesia follow up: Airway intact: Yes Vital signs: Temperature 97.7 F Pulse Rate 79 Respiratory Rate 18 Blood Pressure 172/86 Pulse Oximetry 98 Oxygen Delivery Me thod Room Air Oxygen Flow Rate Fraction of Inspir ed Oxygen Hydration adequate: Yes Nausea and vomiting: No Pain level: 1 Mental status: Baseline
[2021-01-20] MEDS: ondansetron 2 mg/ML SDV 2 mL 4 MG IVP (14:15)
[2021-01-20 14:20] VITALS: BP 171/103; PULSE 67; RESP 18; O2SAT 98
== END 2021-01-20 14:30 | disposition home or self-care (01) ==
PROVIDERS: PCP Registered Nurse; Visit Provider Surgery
PROC: 0DJ08ZZ Inspection of Upper Intestinal Tract, Via Natural or Artificial Opening Endoscopic (ICD-10-PCS; CPT 43235; principal; 2021-01-20 10:00)
PROC: 0DJD8ZZ Inspection of Lower Intestinal Tract, Via Natural or Artificial Opening Endoscopic (ICD-10-PCS; CPT 45378; 2021-01-20 10:00)
DX: D50.9 Iron deficiency anemia, unspecified (principal); D12.4 Benign neoplasm of descending colon; K57.30 Diverticulosis of large intestine without perforation or abscess without bleeding; D12.5 Benign neoplasm of sigmoid colon; K44.9 Diaphragmatic hernia without obstruction or gangrene; K29.70 Gastritis, unspecified, without bleeding; K21.9 Gastro-esophageal reflux disease without esophagitis; E66.01 Morbid (severe) obesity due to excess calories; Z68.43 Body mass index [BMI] 50.0-59.9, adult; Z87.891 Personal history of nicotine dependence
CPT/HCPCS: 43235; 45380; 88305; 96361; 96374; J2405; J2704; J7030

== ENCOUNTER 2021-02-01 14:28 | Outpatient (CLI) | payer BC, SELFPAY ==
[2021-02-01 15:49] LABS: Basophils % 0.5 %; Eosinophils # 0.1 10^3/uL (0.0-0.8); Eosinophils % 1.6 %; Hematocrit 31.8 % (37.0-47.0); Hemoglobin 8.7 g/dL (11.5-15.3); Lymphocytes # 2.4 10^3/uL (0.8-4.8); Lymphocytes % 29.7 %; Mean Corpuscular HGB Conc 27.4 g/dL (30.0-36.0); Mean Corpuscular Hemoglobin 20.4 pg (28.0-34.0); Mean Corpuscular Volume 74.5 fL (81-99); Monocytes # 0.4 10^3/uL (0.2-0.9); Monocytes % 5.5 %; Neutrophils # 5.02 10^3/uL (1.8-7.7); Neutrophils % 62.2 %; Nucleated Red Blood Cells % 0 %; Platelet Count 415 10^3/cmm (130-400); Red Blood Count 4.27 10^6/uL (4.1-5.3); White Blood Count 8.1 10^3/uL (4.0-10.0)
[2021-02-01 16:19] LABS: Slide Review Slide Review Perform
[2021-02-01 16:25] LABS: Ferritin 12 ng/mL (15-150); Iron 19 ug/dL (37-145); Percent Saturation 7.9 % (20-50); Total Iron Binding Capacity 239 mcg/dl; Unsaturated Iron Binding 220 ug/dL (112-347)
--- NOTE | 2021-02-01 17:32 | ONC FU_ITS ---
Dr. Iglesias follow up note Patient: Suzie Gomez Unit #: [id number]: [id number] Dicatated By: Viviane Iglesias M.D.Date of Visit:Feb 01, 2021 Onc Med Follow-up/Prog Note History of Present Illness: Ms. Suzie Gomez is a 55-year-old female with a history of progressive dyspnea on exertion, palpitation, generalized weakness and fatigue, lightheadedness or dizziness initially thought it was due to deconditioning, physical therapy did not help her much eventually patient went to see her PMD on December 17, 2020, who ordered CBC and ask her to go to [facility] ER as her CBC showed white blood count 6.8 hemoglobin 5.8 hematocrit 22.5 platelets 479,000 MCV 72.8, patient was admitted to hospital and was given 2 units of packed RBCs with that her overall condition improved, Dr. Hills was consulted and colonoscopy/EGD was planned as outpatient now scheduled for January 20, 2021 Patient denies any history of melena or hematochezia, denies any history of hemoptysis or hematemesis, denies any history of jaundice, denies any history of nosebleed or gum bleed, denies any history of vaginal bleeding as patient has history of hysterectomy. As per patient she had a colonoscopy done on February 03, 2014 and it was unremarkable. Patient has family history of iron deficiency anemia and her younger sister and maternal grandmother, as per her younger sister who is accompanying her her iron deficiency anemia due to heavy menstrual. periods and she is on oral iron supplements. Patient denies any night sweats, denies any weight loss rather gain, denies any recurrent fever, denies any peripheral lymphadenopathy, denies any gum bleed or nosebleed., Denies any chest pain EGD done on January 20, 2021 showed normal exam except mild gastritis and colonoscopy done on January 20, 2021 was also within normal range except 5 mm sessile polyp removed from descending colon and sigmoid colon both benign and mild diverticulosis in sigmoid colon., Intolerance to oral iron Came for follow-up, complaining of generalized weakness and fatigue, as per patient she did Start taking oral iron on December 28, 2020, and took it for 4 days and then developed severe abdominal pain and indigestion and diarrhea and cramps, mild nausea but no vomiting, patient stopped taking oral iron within first week. But continued to feel weak and tired now with palpitation with mild exertion, as per patient, she is not even tolerating mild exertion without getting short of breath or palpitation heart rate in the range of 140s. No chest pain or or dizziness, no jaundice, no melena or hematochezia, no hemoptysis or hematemesis, recently underwent EGD and colonoscopy both were unremarkable except mild diverticulosis in sigmoid colon and 5 mm sessile polyp was removed from sigmoid colon, it is benign. Medications: Losartan Potassium 1 Tablet (of 100 mg) Oral daily, Meloxicam 1 Tablet (of 15 mg) Oral q 48 hours, Metoprolol Succinate ER 1 Tablet (of 25 mg) Tablet SR 24 HR Oral daily, Pantoprazole Sodium 1 Tablet (of 40 mg) Tablet, enteric coated Oral daily Allergies: No Known Allergies. Review of Systems: Review of Systems is not available for this patient. Vital Signs: Performed on Feb 01, 2021 16:39 Weight - 310.4 lbs (HIGH) BSA - sq.m BMI - 0.00 (LOW) Temperature - 98.0 F (LOW) Pulse - 97 /min Respiration - 18 /min BP - 144/91 mm(hg) (HIGH) O2 Sat - 99 % Pain - 0 Performance Status: 2 - Ambulatory/capable of all self-care, unable to perform any work activities. Up and about more than 50% of waking hours. (ECOG) Physical Examination: ENMT - Soft, bowel sounds present, pale conjunctive, no jaundice, Respiratory - Lungs are clear to auscultation, Cardiovascular - Regular rate and rhythm of heart, Abdomen - Soft, bowel sounds present, Extremities - No visible edema. Lab/Imaging: Most recent lab results are not available for this patient. Impression: Iron deficiency anemia status post 2 units of packed RBCs done on December 18, 2020 for hemoglobin 5.8 g, hematocrit 22.5 MCV 72.8 white blood count 6.8 and platelets 479, iron studies done on same day shows iron saturation 5% ferritin 8, iron 11 B12 277, folate 8.6 Status post 2 units of packed RBCs on December 18, 2020 for severe iron deficiency anemia Started on oral iron on December 28, 2020 along with multivitamin, Patient discontinue oral iron within a week because of GI intolerance Mild thrombocytosis, probably due to severe iron deficiency or chronic GI blood loss EGD/colonoscopy done on January 20, 2021 showed mild gastritis and mild diverticulosis in sigmoid colon, 5 mm sessile polyp removed from descending colon and sigmoid colon, benign, no evidence of gross bleeding Plan: Discussed with patient regarding her labs white blood count 8.1 hemoglobin 8.7 g compared to 8.2 g previously hematocrit 31.8 platelets 415,000, iron studies consistent with iron deficiency Clinically, patient is in mild to moderate distress due to symptomatic iron deficiency anemia, she could not tolerate oral iron because of GI intolerance, at this point we will consider 1 unit of packed RBC, hopefully that will improve her symptoms, as patient has very active lifestyle. And also consider Injectafer 750 mg IV weekly x2 and then she will return to clinic 1 month after second dose with CBC and iron studies, her recent EGD and colonoscopy showed no evidence of gross bleeding, etiology of iron deficiency anemia could be iron malabsorption or chronic GI blood loss from small bowel due to AVM, at this point will refer her to gastroenterology in [place] for small bowel capsule endoscopy to rule out small bowel pathology and patient was advised to take it easy until improvement in her symptomatic iron deficiency anemia, hopefully blood transfusion may improve her symptoms. Signed By: Viviane Iglesias M.D. <<Signature on File>>
== END 2021-02-01 14:29 | disposition home or self-care (01) ==
PROVIDERS: PCP Registered Nurse; Visit Provider Internal Medicine Hematology & Oncology
DX: D50.9 Iron deficiency anemia, unspecified (principal); D47.3 Essential (hemorrhagic) thrombocythemia; K29.70 Gastritis, unspecified, without bleeding; K57.30 Diverticulosis of large intestine without perforation or abscess without bleeding; Z79.899 Other long term (current) drug therapy
CPT/HCPCS: 36415; 82728; 83540; 83550; 85025; 99214

== ENCOUNTER 2021-02-02 06:55 | Outpatient (CLI) | payer BC, SELFPAY ==
[2021-02-02 09:09] LABS: Basophils # 0.1 10^3/uL (0.0-0.1); Basophils % 0.7 %; Eosinophils # 0.1 10^3/uL (0.0-0.8); Eosinophils % 1.7 %; Hematocrit 27.9 % (37.0-47.0); Hemoglobin 8.1 g/dL (11.5-15.3); Lymphocytes # 2.1 10^3/uL (0.8-4.8); Mean Corpuscular Hemoglobin 20.6 pg (28.0-34.0); Monocytes # 0.4 10^3/uL (0.2-0.9); Neutrophils % 61.2 %; Nucleated Red Blood Cells % 0 %; Platelet Count 340 10^3/cmm (130-400); Red Blood Count 3.93 10^6/uL (4.1-5.3); Red Cell Distribution Width 19.9 % (12.1-15.1); White Blood Count 6.9 10^3/uL (4.0-10.0)
[2021-02-02 09:27] LABS: Slide Review Slide Review Perform
[2021-02-02] MEDS: diphenhydrAMINE 25 mg Capsule PO (11:00)
[2021-02-02] MEDS: acetaminophen 325 mg Tablet 650 MG PO (11:00)
[2021-02-02 11:15] VITALS: BP 150/67; PULSE 56; RESP 18; TEMP 36.6; O2SAT 99
== END 2021-02-02 06:56 | disposition home or self-care (01) ==
LOC: ONCMED 06:57
PROVIDERS: PCP Registered Nurse; Visit Provider Internal Medicine Hematology & Oncology
DX: D50.9 Iron deficiency anemia, unspecified (principal); D47.3 Essential (hemorrhagic) thrombocythemia
CPT/HCPCS: 36430; 85025; 86850; 86900; 86920; P9016

== ENCOUNTER 2021-02-17 07:13 | Outpatient (CLI) | payer BC, SELFPAY ==
[2021-02-17] MEDS: iron sucrose 200 MG in sodium chloride 0.9% (100 ml) 100 ML 220 MG IV (14:44)
[2021-02-17] MEDS: sodium chloride 0.9% (100 ml) 100 ML 200 ML (15:11)
== END 2021-02-17 07:14 | disposition home or self-care (01) ==
LOC: ONCMED 07:15
PROVIDERS: PCP Registered Nurse; Visit Provider Internal Medicine Hematology & Oncology
DX: D50.9 Iron deficiency anemia, unspecified (principal); D47.3 Essential (hemorrhagic) thrombocythemia
CPT/HCPCS: 96365; J1756

== ENCOUNTER 2021-03-03 06:34 | Outpatient (CLI) | payer OTHER, SELFPAY ==
[2021-03-03] MEDS: iron sucrose 200 MG in sodium chloride 0.9% (100 ml) 100 ML 220 MG IV (14:37)
== END 2021-03-03 06:35 | disposition home or self-care (01) ==
LOC: ONCMED 06:35
PROVIDERS: PCP Registered Nurse; Visit Provider Internal Medicine Hematology & Oncology
DX: D50.9 Iron deficiency anemia, unspecified (principal); D47.3 Essential (hemorrhagic) thrombocythemia
CPT/HCPCS: 96365; J1756

== ENCOUNTER 2021-03-18 06:03 | Outpatient (CLI) | payer OTHER, SELFPAY ==
[2021-03-18] MEDS: iron sucrose 200 MG in sodium chloride 0.9% (100 ml) 100 ML 220 MG IV (09:35)
== END 2021-03-18 06:04 | disposition home or self-care (01) ==
LOC: ONCMED 06:09
PROVIDERS: PCP Registered Nurse; Visit Provider Internal Medicine Hematology & Oncology
DX: D50.9 Iron deficiency anemia, unspecified (principal); D47.3 Essential (hemorrhagic) thrombocythemia; K29.70 Gastritis, unspecified, without bleeding; K57.30 Diverticulosis of large intestine without perforation or abscess without bleeding; Z79.899 Other long term (current) drug therapy
CPT/HCPCS: 96365; J1756

== ENCOUNTER 2021-03-23 06:50 | Outpatient (CLI) | payer OTHER, SELFPAY ==
[2021-03-23] MEDS: iron sucrose 200 MG in sodium chloride 0.9% (100 ml) 100 ML 220 MG IV (16:30)
== END 2021-03-23 06:51 | disposition home or self-care (01) ==
LOC: ONCMED 06:52
PROVIDERS: PCP Registered Nurse; Visit Provider Internal Medicine Hematology & Oncology
DX: D50.9 Iron deficiency anemia, unspecified (principal); Z79.899 Other long term (current) drug therapy
CPT/HCPCS: 96365; J1756

== ENCOUNTER 2021-03-25 06:13 | Outpatient (CLI) | payer OTHER, SELFPAY ==
[2021-03-25] MEDS: iron sucrose 200 MG in sodium chloride 0.9% (100 ml) 100 ML 220 MG IV (09:20)
[2021-03-25] MEDS: sodium chloride 0.9% (100 ml) 100 ML 75 ML (09:20)
== END 2021-03-25 06:14 | disposition home or self-care (01) ==
LOC: ONCMED 06:15
PROVIDERS: PCP Registered Nurse; Visit Provider Internal Medicine Medical Oncology
DX: D50.9 Iron deficiency anemia, unspecified (principal); Z79.899 Other long term (current) drug therapy
CPT/HCPCS: 96365; J1756

== ENCOUNTER 2021-06-01 16:18 | Outpatient (CLI) | payer OTHER, SELFPAY ==
[2021-06-01 16:49] LABS: Basophils % 0.6 %; Eosinophils # 0.1 10^3/uL (0.0-0.8); Eosinophils % 1.2 %; Hematocrit 39.4 % (37.0-47.0); Hemoglobin 12.3 g/dL (11.5-15.3); Lymphocytes # 2.3 10^3/uL (0.8-4.8); Mean Corpuscular HGB Conc 31.2 g/dL (30.0-36.0); Mean Corpuscular Hemoglobin 26.3 pg (28.0-34.0); Mean Corpuscular Volume 84.2 fl (81-99); Mean Platelet Volume 11.9 fL (7.4-10.4); Monocytes # 0.4 10^3/uL (0.2-0.9); Monocytes % 5.5 %; Neutrophils # 4.37 10^3/uL (1.8-7.7); Neutrophils % 60.6 %; Nucleated Red Blood Cells % 0 %; Platelet Count 364 10^3/cmm (130-400); Red Blood Count 4.68 10^6/uL (4.1-5.3); Red Cell Distribution Width 16.1 % (12.1-15.1); White Blood Count 7.2 10^3/uL (4.0-10.0)
[2021-06-01 17:45] LABS: Ferritin 27 ng/mL (15-150); Iron 34 ug/dL (37-145); Percent Saturation 18.1 % (20-50); Total Iron Binding Capacity 187 mcg/dl; Unsaturated Iron Binding 153 ug/dL (112-347)
== END 2021-06-01 16:19 | disposition home or self-care (01) ==
PROVIDERS: PCP Registered Nurse; Visit Provider Internal Medicine Hematology & Oncology
DX: D50.9 Iron deficiency anemia, unspecified (principal); D75.839 Thrombocytosis, unspecified; K29.70 Gastritis, unspecified, without bleeding; K57.30 Diverticulosis of large intestine without perforation or abscess without bleeding; Z79.899 Other long term (current) drug therapy
CPT/HCPCS: 36415; 82728; 83540; 83550; 85025

== ENCOUNTER 2021-06-03 06:30 | Outpatient (CLI) | payer OTHER, SELFPAY ==
--- NOTE | 2021-06-03 09:05 | ONC FU_ITS ---
Dr. Iglesias follow up note Patient: Suzie Gomez Unit #: [id number]: [id number] Dicatated By: Viviane Iglesias M.D.Date of Visit:Jun 03, 2021 Onc Med Follow-up/Prog Note History of Present Illness: Ms. Suzie Gomez is a 55-year-old female with a history of progressive dyspnea on exertion, palpitation, generalized weakness and fatigue, lightheadedness or dizziness initially thought it was due to deconditioning, physical therapy did not help her much eventually patient went to see her PMD on December 17, 2020, who ordered CBC and ask her to go [place] [facility] [place] as her CBC showed white blood count 6.8 hemoglobin 5.8 hematocrit 22.5 platelets 479,000 MCV 72.8, patient was admitted to hospital and was given 2 units of packed RBCs with that her overall condition improved, Dr. Hills was consulted and colonoscopy/EGD was planned as outpatient now scheduled for January 20, 2021 Patient denies any history of melena or hematochezia, denies any history of hemoptysis or hematemesis, denies any history of jaundice, denies any history of nosebleed or gum bleed, denies any history of vaginal bleeding as patient has history of hysterectomy. As per patient she had a colonoscopy done on February 03, 2014 and it was unremarkable. Patient has family history of iron deficiency anemia and her younger sister and maternal grandmother, as per her younger sister who is accompanying her her iron deficiency anemia due to heavy menstrual. periods and she is on oral iron supplements. Patient denies any night sweats, denies any weight loss rather gain, denies any recurrent fever, denies any peripheral lymphadenopathy, denies any gum bleed or nosebleed., Denies any chest pain EGD done on January 20, 2021 showed normal exam except mild gastritis and colonoscopy done on January 20, 2021 was also within normal range except 5 mm sessile polyp removed from descending colon and sigmoid colon both benign and mild diverticulosis in sigmoid colon., Intolerance to oral iron, Status post Venofer 200 mg x 5 from February 17 through March 25, 2021 with excellent response Came for follow-up, denies any specific complaints, no fever chills, no nausea or vomiting, no diarrhea constipation, no melena or hematochezia no hemoptysis hematemesis, no jaundice, patient has seen Dr. Harris, rehab director in [facility] for evaluation regarding capsule endoscopy, as per patient, Dr. Harris recommended stopping meloxicam as it may be causing chronic GI blood loss and patient did stop taking meloxicam last month. And if iron deficiency anemia persist, then he would consider capsule endoscopy. Medications: Losartan Potassium 1 Tablet (of 100 mg) Oral daily, Meloxicam 1 Tablet (of 15 mg) Oral q 48 hours, Metoprolol Succinate ER 1 Tablet (of 25 mg) Tablet SR 24 HR Oral daily, Pantoprazole Sodium 1 Tablet (of 40 mg) Tablet, enteric coated Oral daily Allergies: No Known Allergies. Review of Systems: Review of Systems is not available for this patient. Vital Signs: Performed on Jun 03, 2021 08:38 Weight - 313.8 lbs (LOW) BSA - 0.00 sq.m BMI - 0.00 Temperature - 97.6 F (LOW) Pulse - 61 /min Respiration - 18 /min BP - 156/87 mm(hg) (HIGH) O2 Sat - 97 % Pain - 0 Fatigue - 8 Performance Status: 0 - Fully active, able to carry on all predisease activities without restrictions. (ECOG) Physical Examination: ENMT - No mouth sores, no thrush, no jaundice, Respiratory - Lungs are clear to auscultation, Cardiovascular - Regular rate and rhythm of heart, Abdomen - Soft, bowel sounds present, Extremities - No visible edema. Lab/Imaging: Most recent lab results are not available for this patient. Impression: Iron deficiency anemia status post 2 units of packed RBCs done on December 18, 2020 for hemoglobin 5.8 g, hematocrit 22.5 MCV 72.8 white blood count 6.8 and platelets 479, iron studies done on same day shows iron saturation 5% ferritin 8, iron 11 B12 277, folate 8.6 Status post 2 units of packed RBCs on December 18, 2020 for severe iron deficiency anemia Started on oral iron on December 28, 2020 along with multivitamin, Patient discontinue oral iron within a week because of GI intolerance, Status post Venofer 200 mg IV from February 17, 2021 through March 25, 2021 with excellent response Mild thrombocytosis, probably due to severe iron deficiency or chronic GI blood loss EGD/colonoscopy done on January 20, 2021 showed mild gastritis and mild diverticulosis in sigmoid colon, 5 mm sessile polyp removed from descending colon and sigmoid colon, benign, no evidence of gross bleeding Plan: Discussed with patient regarding her labs white blood count 7.2 hemoglobin 12.3 hematocrit 39.4 platelets 364,000 iron studies shows iron saturation 18.1% compared to 7.9% prior to Venofer infusion ferritin 27 compared to 12 prior to Venofer infusion iron 34, TIBC 187 Clinically, patient doing well with no new signs symptoms, her follow-up labs shows normalization of her hemoglobin but iron studies shows iron deficiency as her iron saturation and iron level is low and ferritin is on the lower side of normal range., Etiology of iron deficiency anemia remained inconclusive but most likely due to chronic blood loss, she was referred to gastroenterology for capsule endoscopy as her EGD and colonoscopy did not show obvious source of blood loss., Patient was referred to Dr. Harris, gastroenterology in [facility] for capsule endoscopy, his recommendations were to stop meloxicam, which may reduce possibility of chronic GI blood loss, if her iron deficiency anemia persist then capsule endoscopy could be considered. Patient did stop taking meloxicam last month, and she denies any signs of gross bleeding. We will continue to monitor and she will return to clinic in 1 month with CBC and iron studies, if it shows progressive iron deficiency anemia, then will consider repeating parenteral iron and further evaluation including capsule endoscopy to rule out small bowel pathology including AVMs. Signed By: Viviane Iglesias M.D. <<Signature on File>>
== END 2021-06-03 06:31 | disposition home or self-care (01) ==
LOC: ONCMED 06:31
PROVIDERS: PCP Registered Nurse; Visit Provider Internal Medicine Hematology & Oncology
DX: D50.9 Iron deficiency anemia, unspecified (principal); D75.838 Other thrombocytosis; Z79.899 Other long term (current) drug therapy
CPT/HCPCS: 99214

== ENCOUNTER 2021-07-08 09:58 | Outpatient (CLI) | payer OTHER, SELFPAY ==
[2021-07-08 11:25] LABS: Basophils % 0.5 %; Eosinophils # 0.1 10^3/uL (0.0-0.8); Hematocrit 42.5 % (37.0-47.0); Hemoglobin 13.3 g/dL (11.5-15.3); Lymphocytes # 2.2 10^3/uL (0.8-4.8); Lymphocytes % 33.7 %; Mean Corpuscular HGB Conc 31.3 g/dL (30.0-36.0); Mean Corpuscular Hemoglobin 26.2 pg (28.0-34.0); Mean Corpuscular Volume 83.8 fl (81-99); Mean Platelet Volume 11.5 fL (7.4-10.4); Monocytes # 0.4 10^3/uL (0.2-0.9); Monocytes % 5.8 %; Neutrophils # 3.71 10^3/uL (1.8-7.7); Neutrophils % 57.7 %; Nucleated Red Blood Cells % 0 %; Platelet Count 390 10^3/cmm (130-400); Red Blood Count 5.07 10^6/uL (4.1-5.3); Red Cell Distribution Width 14.7 % (12.1-15.1); White Blood Count 6.4 10^3/uL (4.0-10.0)
[2021-07-08 11:47] LABS: Ferritin 36 ng/mL (15-150); Iron 42 ug/dL (37-145); Percent Saturation 23.2 % (20-50); Total Iron Binding Capacity 181 mcg/dl; Unsaturated Iron Binding 139 ug/dL (112-347)
--- NOTE | 2021-07-08 12:17 | ONC FU_ITS ---
Dr. Iglesias follow up note Patient: Suzie Gomez Unit #: [id number]: [id number] Dicatated By: Viviane Iglesias M.D.Date of Visit:Jul 08, 2021 Onc Med Follow-up/Prog Note History of Present Illness: Ms. Suzie Gomez is a 55-year-old female with a history of progressive dyspnea on exertion, palpitation, generalized weakness and fatigue, lightheadedness or dizziness initially thought it was due to deconditioning, physical therapy did not help her much eventually patient went to see her PMD on December 17, 2020, who ordered CBC and ask her to go [place] [facility] [place] as her CBC showed white blood count 6.8 hemoglobin 5.8 hematocrit 22.5 platelets 479,000 MCV 72.8, patient was admitted to hospital and was given 2 units of packed RBCs with that her overall condition improved, Dr. Hills was consulted and colonoscopy/EGD was planned as outpatient now scheduled for January 20, 2021 Patient denies any history of melena or hematochezia, denies any history of hemoptysis or hematemesis, denies any history of jaundice, denies any history of nosebleed or gum bleed, denies any history of vaginal bleeding as patient has history of hysterectomy. As per patient she had a colonoscopy done on February 03, 2014 and it was unremarkable. Patient has family history of iron deficiency anemia and her younger sister and maternal grandmother, as per her younger sister who is accompanying her her iron deficiency anemia due to heavy menstrual. periods and she is on oral iron supplements. Patient denies any night sweats, denies any weight loss rather gain, denies any recurrent fever, denies any peripheral lymphadenopathy, denies any gum bleed or nosebleed., Denies any chest pain EGD done on January 20, 2021 showed normal exam except mild gastritis and colonoscopy done on January 20, 2021 was also within normal range except 5 mm sessile polyp removed from descending colon and sigmoid colon both benign and mild diverticulosis in sigmoid colon., Intolerance to oral iron, Status post Venofer 200 mg x 5 from February 17 through March 25, 2021 with excellent response patient has seen Dr. Harris, electric meter installer helper in [facility] for evaluation regarding capsule endoscopy, as per patient, Dr. Harris recommended stopping meloxicam as it may be causing chronic GI blood loss and patient did stop taking meloxicam last month. And if iron deficiency anemia persist, then he would consider capsule endoscopy. Came for follow-up, denies any specific complaints, except generalized weakness and fatigue, also complaining of snoring. Otherwise no melena or hematochezia no hemoptysis hematemesis no chest pain or shortness of breath at rest no jaundice. Medications: Losartan Potassium 1 Tablet (of 100 mg) Oral daily, Meloxicam 1 Tablet (of 15 mg) Oral q 48 hours, Metoprolol Succinate ER 1 Tablet (of 25 mg) Tablet SR 24 HR Oral daily, Pantoprazole Sodium 1 Tablet (of 40 mg) Tablet, enteric coated Oral daily Allergies: No Known Allergies. Review of Systems: Review of Systems is not available for this patient. Vital Signs: Performed on Jul 08, 2021 11:54 Weight - 312.2 lbs (LOW) BSA - 0.00 sq.m BMI - 0.00 Temperature - 97.6 F (LOW) Pulse - 55 /min (LOW) Respiration - 18 /min BP - 128/81 mm(hg) O2 Sat - 98 % Pain - 0 Fatigue - 10 Performance Status: 0 - Fully active, able to carry on all predisease activities without restrictions. (ECOG) Physical Examination: ENMT - No mouth sores, no thrush, no jaundice, Respiratory - Lungs are clear to auscultation, Cardiovascular - Regular rate and rhythm of heart, Abdomen - Soft, bowel sounds present, Extremities - No visible edema. Lab/Imaging: Most recent lab results are not available for this patient. Impression: Iron deficiency anemia status post 2 units of packed RBCs done on December 18, 2020 for hemoglobin 5.8 g, hematocrit 22.5 MCV 72.8 white blood count 6.8 and platelets 479, iron studies done on same day shows iron saturation 5% ferritin 8, iron 11 B12 277, folate 8.6 Status post 2 units of packed RBCs on December 18, 2020 for severe iron deficiency anemia Started on oral iron on December 28, 2020 along with multivitamin, Patient discontinue oral iron within a week because of GI intolerance, Status post Venofer 200 mg IV from February 17, 2021 through March 25, 2021 with excellent response Mild thrombocytosis, probably due to severe iron deficiency or chronic GI blood loss EGD/colonoscopy done on January 20, 2021 showed mild gastritis and mild diverticulosis in sigmoid colon, 5 mm sessile polyp removed from descending colon and sigmoid colon, benign, no evidence of gross bleeding Plan: Discussed with patient regarding her labs white blood count 6.4 hemoglobin 13.3 hematocrit 42.5 platelets 390,000 iron studies shows iron saturation 23.2% ferritin 36 iron 42 TIBC 181 Clinically, patient doing well with no new signs symptoms history of gross bleeding her follow-up labs shows hemoglobin in normal range along with iron stores. At this point, we will continue to monitor, she will return to clinic in 2 months with CBC and iron studies As for generalized weakness and fatigue is concerned probably multifactorial including underlying sleep apnea, we will order sleep studies as if confirmed, she may benefit from CPAP machine. Signed By: Viviane Iglesias M.D. <<Signature on File>>
== END 2021-07-08 09:59 | disposition home or self-care (01) ==
LOC: ONCMED 10:01
PROVIDERS: PCP Registered Nurse; Visit Provider Internal Medicine Hematology & Oncology
DX: D50.9 Iron deficiency anemia, unspecified (principal); D75.838 Other thrombocytosis; K29.00 Acute gastritis without bleeding; K57.30 Diverticulosis of large intestine without perforation or abscess without bleeding; D12.4 Benign neoplasm of descending colon; D12.5 Benign neoplasm of sigmoid colon; Z79.899 Other long term (current) drug therapy
CPT/HCPCS: 36415; 82728; 83540; 83550; 85025; 99214

== ENCOUNTER 2024-02-12 08:30 | Oncology outpatient (recurring) (ONCR) | payer BC, SELFPAY ==
[2024-02-05 11:11] VITALS: BP 131/74; PULSE 59; RESP 16; TEMP 36.3; O2SAT 98
[2024-02-05] MEDS: sodium chloride 0.9% 250 ML 75 ML IV (11:11)
[2024-02-05] MEDS: ferumoxytol (NON-ESRD) 510 MG in sodium chloride 0.9% (100 ml) 100 ML 351 MG IV (11:11)
[2024-02-05 12:42] VITALS: BP 105/65; PULSE 89; RESP 16; TEMP 36.4; O2SAT 98
[2024-02-12 08:22] VITALS: BP 144/68; PULSE 60; RESP 16; TEMP 36.8; O2SAT 97
[2024-02-12 08:33] VITALS: BP 144/68; PULSE 60; RESP 16; TEMP 36.8; O2SAT 97
[2024-02-12] MEDS: sodium chloride 0.9% 250 ML 75 ML IV (08:52)
[2024-02-12] MEDS: ferumoxytol (NON-ESRD) 510 MG in sodium chloride 0.9% (100 ml) 100 ML 351 MG IV (08:54)
[2024-02-12 09:35] VITALS: BP 123/79; PULSE 57; RESP 18; TEMP 36.1; O2SAT 98
== END 2024-02-24 23:59 | disposition home or self-care (01) ==
PROVIDERS: PCP Registered Nurse; Visit Provider Family Medicine
DX: D64.9 Anemia, unspecified (principal); Z53.9 Procedure and treatment not carried out, unspecified reason
CPT/HCPCS: 96365; J7050; Q0138

== ENCOUNTER 2024-03-03 12:47 | Outpatient (CLI) | payer BC, SELFPAY ==
--- NOTE | 2024-03-03 12:51 | MM_ITS ---
WS: [id number] BILATERAL 3D TOMOSYNTHESIS DIGITAL SCREENING MAMMOGRAPHY WITH CAD CLINICAL INFORMATION: SCREENING HISTORY: Screening mammogram. No current complaints. COMPARISON: 2020 TECHNIQUE: Bilateral CC and MLO views. FINDINGS: Scattered fibroglandular densities bilaterally. No suspicious focal mass, asymmetry, calcifications, or architectural distortion. No evidence of malignancy. Incidental punctate and lucent centered calci fications. MM/[place] [id number] IMPRESSION: BI-RADS: 2-Benign FOLLOW UP: 1 Year Follow-up Recommend return to annual screening mammography.
== END 2024-03-03 12:48 | disposition home or self-care (01) ==
LOC: RAD 12:47
PROVIDERS: PCP Registered Nurse; Visit Provider Family Medicine
DX: Z12.31 Encounter for screening mammogram for malignant neoplasm of breast (principal)
CPT/HCPCS: 77063; 77067

== ENCOUNTER 2025-04-03 15:06 | Outpatient (CLI) | payer OTHER, SELFPAY ==
--- NOTE | 2025-04-03 15:12 | MR_ITS ---
WS: [id number] MRI LUMBAR SPINE NONCONTRAST TECHNIQUE: Sagittal T1, T2 and STIR imaging. Axial T1 and T2 imaging. CLINICAL INFORMATION: R LUMBAR RADICULOPATHY COMPARISON: None. FINDINGS: Mild lumbar curve. No acute compression. Disc desiccation worse at L5-S1. L1-L2: Mild annular bulging. Spinal canal and foramen are patent. L2-L3: Mild annular bulging with slight effacement of the ventral thecal sac. Mild facet arthropathy. Mild LEFT and no significant RIGHT foraminal narrowing. L3-L4: Mild annular bulging. Slight effacement of the ventral thecal sac. Mild facet arthropathy. Spinal canal and foramen are patent. L4-L5: Mild annular bulging. Mild central canal stenosis with narrowing of the subarticular recess bilaterally LEFT greater than RIGHT. Moderate facet arthropathy. Tiny LEFT foraminal protrusion with mild LEFT foraminal narrowing. L5-S1: Shallow Central disc protrusion with impingement traversing S1 nerve roots bilaterally. Moderate facet arthropathy. Small annular fissure. Foramen are patent. Visualized pelvic bony structures: Normal. Paravertebral soft tissues: Normal. Partially visualized large esophageal hiatal hernia with intrathoracic stomach. MR/MR lumbar spine wo con* [id number] IMPRESSION: 1. Mild central canal stenosis L4-5 with narrowing of the LEFT greater than RI GHT subarticular recess. 2. Tiny LEFT foraminal protrusion L4-5 slightly contacts the exiting LEFT L4 n erve root. 3. Central disc protrusion L5-S1 with a small annular fissure impinges the tra versing S1 nerve roots bilaterally. 4. Moderate facet arthropathy L4-L5 and L5-S1. 5. Partially visualized large esophageal hiatal hernia with intrathoracic stom ach.
== END 2025-04-03 15:07 | disposition home or self-care (01) ==
LOC: RAD 15:08
PROVIDERS: PCP Registered Nurse; Visit Provider Electrodiagnostic Medicine
DX: M51.16 Intervertebral disc disorders with radiculopathy, lumbar region (principal); M48.061 Spinal stenosis, lumbar region without neurogenic claudication; M47.26 Other spondylosis with radiculopathy, lumbar region
CPT/HCPCS: 72148

== ENCOUNTER → 2025-04-28 14:10 | Outpatient (BNVA) | payer OTHER, SELFPAY | PROVIDERS: PCP Family Medicine; Visit Provider Orthopaedic Surgery | DX: M16.11 Unilateral primary osteoarthritis, right hip (principal) | CPT/HCPCS: 73502 ==